=== PATIENT | female | born 1940 | race Caucasian/White ===

== ENCOUNTER 2023-04-18 12:18 | Inpatient (IN) | payer MEDICARE, OTHER, SELFPAY ==
[2023-04-18] VITALS (23 sets, daily range): BP systolic 88–145; BP diastolic 62–102; BMI 23.9; BMI 23.0
--- NOTE | 2023-04-18 09:38 | ED.GENMED ---
History of Present Illness
<Lester Carpenter PA-C - Last Filed: 04/18/23 15:26>
General
Chief Complaint: Breathing Problem
Time Seen by Provider: 04/18/23 09:09
Travel History
Have you had any contact with someone who has COVID-19?: No
Do you have any symptoms of coronavirus? Fever > 100 degrees, chills, cough, shortness of breath, sore throat, loss of taste or smell, muscle aches, or headache?: Yes
Symptoms:: cough, sob
History of Present Illness
History of Present Illness:
83-year-old female with history of multiple myeloma currently in remission, paroxysmal atrial fibrillation presents to the emergency department for evaluation of orthopnea and dyspnea on exertion ongoing for the past 5 to 6 days. Has been sleeping
essentially upright due to symptoms. Denies any associated fever, chills, sweats, chest pain, nausea, or vomiting. No recent URI symptoms. She notes that she is compliant with her Eliquis however has been cutting the pills in half thus taking 2.5
mg twice daily, it is not clear whether this was recommended by her professor of social work or whether the patient did this of her own volition. Additionally her family notes that she was previously prescribed amiodarone but she has not taken this in quite
some time, also unclear whether this was advised by her professor of social work or not.
Past History
<Lester Carpenter PA-C - Last Filed: 04/18/23 15:26>
Past History
ED Past Medical History: Arrthythmia
ED Past Surgical History: Orthopedic
Social History
Tobacco: Non-smoker
Alcohol: None
Drug: None
Personal: Other (With her sister)
Living: with family
Review of Systems
<Lester Carpenter PA-C - Last Filed: 04/18/23 15:26>
Review of Systems
Allergies reviewed?: Yes
All Other Systems: ROS reviewed and negative except as documented in HPI and ROS
Phy Exam
<Lester Carpenter PA-C - Last Filed: 04/18/23 15:26>
Physical Exam
Physical Exam:
GEN: Well appearing, NAD, WDWN
HEENT: Oral mucosa moist, no scleral icterus
Cardiac: Profoundly tachycardic
Lung: No respiratory distress, no tachypnea, lungs clear to auscultation bilaterally, no conversational dyspnea
MSK: No gross deformity or injuries, no peripheral edema
Skin: Good color, no pallor or jaundice, no rashes
Neuro: AO x3, moves all extremities freely
Psych: Calm, cooperative
Scores
<Lester Carpenter PA-C - Last Filed: 04/18/23 15:26>
Heart Failure Risk
Heart Failure Risk Score: Not Applicable
Course
<Lester Carpenter PA-C - Last Filed: 04/18/23 15:26>
Orders/Labs/Results
Orders:
Orders
04/18/23 09:27
Electrocardiogram (*1) Urgent
Reason for Study: Other
Other Reason for Exam: Respiratory Distress
Cardiac Monitoring- Treatment ONCE
EKG- Treatment ONCE
IV Insert/Care/Rem.- Treatment PRN
O2 Therapy [RESP] Urgent
Titrate/Wean O2 to maintain O2 sat greater than (%): 93
Special Instructions: TO MAINTAIN CONTINUOUS O2 SATS >/= 93%
Pulse Ox/cont/shift [RESP] Urgent
Quantity: 1
Special Instructions: continuous pulse ox
04/18/23 09:29
Complete Blood Count/With Diff Urgent
Comprehensive Metabolic Panel Urgent
NT-proBNP Urgent
PTT Urgent
Prothrombin Time Urgent
TSH Reflex To Free T4 Urgent
Comment: ADD ON
Troponin I Urgent
04/18/23 09:33
Diltiazem HCl [Cardizem] 10 mg IV NOW STA
04/18/23 09:45
Diltiazem 125 mg/125 ml Nss [Cardizem] 125 mg in 125 ml IV PER PROTOCOL
Initial dose in mg/hr, then titrate:: 5
Titrate to keep:: Heart rate 80-100 bpm
Titrate by mg/hr:: 5 mg/hr
Frequency of titrations (minutes):: 15
Maximum dose in mg/hr:: 15
04/18/23 Lunch
Regular
At Your Request: Full Participation
04/18/23 10:11
CR Chest Portable - 1 View Urgent
Comment:
Reason For Exam: SOB
Reason Study Needs to be Portable: Other
04/18/23 10:40
Add On- LAB Routine
Tests Added?: TSH reflex to T4
04/18/23 10:45
Admit/Transfer Patient As Directed
Co-Sign Provider:
Level of Care: Inpatient admission
Assign to:: IVU
Physician / Group: short/hospitalist
Diagnosis: afib rvr
Reason for Hospitalization: afib rvr
Expected length of stay greater than two midnights?: Yes
ELOS- Estimated Length of Stay in days: 4
I certify the patient meets the requirements for IP care: Yes
04/18/23 10:46
Code Status As Directed
Resuscitation Status: Full Code
04/18/23 10:49
CARDIOLOGY CONSULT Routine
Consulting Provider: Justino Kc
Was physician already notified: Yes
04/18/23 11:01
Troponin I Q6H
04/18/23 11:38
Furosemide [Lasix] 20 mg IV NOW STA
04/18/23 13:25
Acetaminophen [Tylenol] 650 mg PO Q6HPRN PRN
Diltiazem 125 mg/125 ml Nss [Cardizem] 125 mg in 125 ml IV PER PROTOCOL
Initial dose in mg/hr, then titrate:: 5
Titrate to keep:: Heart rate 80-100 bpm
Titrate by mg/hr:: 5 mg/hr
Frequency of titrations (minutes):: 15
Maximum dose in mg/hr:: 15
04/18/23 13:25
Activity As Directed
Activity Level: Out of Bed-Early Mobility
Pneumatic Compression Sleeves As Directed
Type: Knee high
Vital Signs As Directed
Frequency: Per unit guidelines
DX Deep Vein Thrombosis Video Routine
04/18/23 17:00
Troponin I Q6H
04/18/23 20:00
Acyclovir [Zovirax] 400 mg PO BID
Apixaban [Eliquis] 5 mg PO BID
04/18/23 22:00
Montelukast Sodium [Singulair] 10 mg PO HS
04/18/23 23:00
Troponin I Q6H
04/19/23 06:00
Basic Metabolic Panel IN AM
Complete Blood Count/With Diff IN AM
04/19/23 08:00
Pantoprazole [Protonix] 40 mg PO DAILY
04/20/23 06:00
Basic Metabolic Panel IN AM
Complete Blood Count/With Diff IN AM
04/20/23 08:00
Dexamethasone [Decadron] 20 mg PO MO
Abnormal Lab Results
04/18/23
09:29
RBC 4.19 L 10^6/uL
(4.20-5.40)
Absolute Neuts (auto) 6.6 H 10^3/uL
(1.4-6.5)
Absolute Monos (auto) 0.7 H 10^3/uL
(0.1-0.6)
Lymphocytes % 15.5 L %
(20.5-51.1)
PT 20.1 H Sec
(11.4-14.6)
APTT 35.1 H Sec
(23.4-35.0)
Sodium 133 L mmol/L
(135-145)
Carbon Dioxide 21 L mmol/L
(22-30)
BUN 21 H mg/dl
(7-17)
Creatinine 1.3 H mg/dL
(0.6-1.0)
Glucose 109 H mg/dl
(70-99)
ALT 36 H U/L
(0-35)
Total Protein 6.1 L g/dl
(6.3-8.2)
04/18/23 09:29
04/18/23 09:29
Vital Signs
Initial and Last Documented VS:
Initial Vital Signs
Temp Pulse Resp BP Pulse Ox
97.6 F 91 18 117/76 98
04/18/23 09:01 04/18/23 09:01 04/18/23 09:01 04/18/23 09:01 04/18/23 09:01
Last Documented Vital Signs
Temp Pulse Resp BP Pulse Ox
97.9 F 138 16 145/95 92
04/18/23 13:29 04/18/23 13:30 04/18/23 13:29 04/18/23 13:28 04/18/23 13:29
Geethalt;Ej Lima DO - Last Filed: 04/18/23 10:17>
Orders/Labs/Results
Orders:
Orders
04/18/23 09:27
Electrocardiogram (*1) Urgent
Reason for Study: Other
Other Reason for Exam: Respiratory Distress
Cardiac Monitoring- Treatment ONCE
EKG- Treatment ONCE
IV Insert/Care/Rem.- Treatment PRN
O2 Therapy [RESP] Urgent
Titrate/Wean O2 to maintain O2 sat greater than (%): 93
Special Instructions: TO MAINTAIN CONTINUOUS O2 SATS >/= 93%
Pulse Ox/cont/shift [RESP] Urgent
Quantity: 1
Special Instructions: continuous pulse ox
04/18/23 09:29
Complete Blood Count/With Diff Urgent
Comprehensive Metabolic Panel Urgent
NT-proBNP Urgent
PTT Urgent
Prothrombin Time Urgent
TSH Reflex To Free T4 Urgent
Comment: ADD ON
Troponin I Urgent
04/18/23 09:33
Diltiazem HCl [Cardizem] 10 mg IV NOW STA
04/18/23 09:45
Diltiazem 125 mg/125 ml Nss [Cardizem] 125 mg in 125 ml IV PER PROTOCOL
Initial dose in mg/hr, then titrate:: 5
Titrate to keep:: Heart rate 80-100 bpm
Titrate by mg/hr:: 5 mg/hr
Frequency of titrations (minutes):: 15
Maximum dose in mg/hr:: 15
04/18/23 Lunch
Regular
At Your Request: Full Participation
04/18/23 10:11
CR Chest Portable - 1 View Urgent
Comment:
Reason For Exam: SOB
Reason Study Needs to be Portable: Other
04/18/23 10:40
Add On- LAB Routine
Tests Added?: TSH reflex to T4
04/18/23 10:45
Admit/Transfer Patient As Directed
Co-Sign Provider:
Level of Care: Inpatient admission
Assign to:: IVU
Physician / Group: short/hospitalist
Diagnosis: afib rvr
Reason for Hospitalization: afib rvr
Expected length of stay greater than two midnights?: Yes
ELOS- Estimated Length of Stay in days: 4
I certify the patient meets the requirements for IP care: Yes
04/18/23 10:46
Code Status As Directed
Resuscitation Status: Full Code
04/18/23 10:49
CARDIOLOGY CONSULT Routine
Consulting Provider: Justino Kc
Was physician already notified: Yes
04/18/23 11:01
Troponin I Q6H
04/18/23 11:38
Furosemide [Lasix] 20 mg IV NOW STA
04/18/23 13:25
Acetaminophen [Tylenol] 650 mg PO Q6HPRN PRN
Diltiazem 125 mg/125 ml Nss [Cardizem] 125 mg in 125 ml IV PER PROTOCOL
Initial dose in mg/hr, then titrate:: 5
Titrate to keep:: Heart rate 80-100 bpm
Titrate by mg/hr:: 5 mg/hr
Frequency of titrations (minutes):: 15
Maximum dose in mg/hr:: 15
04/18/23 13:25
Activity As Directed
Activity Level: Out of Bed-Early Mobility
Pneumatic Compression Sleeves As Directed
Type: Knee high
Vital Signs As Directed
Frequency: Per unit guidelines
DX Deep Vein Thrombosis Video Routine
04/18/23 17:00
Troponin I Q6H
04/18/23 20:00
Acyclovir [Zovirax] 400 mg PO BID
Apixaban [Eliquis] 5 mg PO BID
04/18/23 22:00
Montelukast Sodium [Singulair] 10 mg PO HS
04/18/23 23:00
Troponin I Q6H
04/19/23 06:00
Basic Metabolic Panel IN AM
Complete Blood Count/With Diff IN AM
04/19/23 08:00
Pantoprazole [Protonix] 40 mg PO DAILY
04/20/23 06:00
Basic Metabolic Panel IN AM
Complete Blood Count/With Diff IN AM
04/20/23 08:00
Dexamethasone [Decadron] 20 mg PO MO
Abnormal Lab Results
04/18/23
09:29
RBC 4.19 L 10^6/uL
(4.20-5.40)
Absolute Neuts (auto) 6.6 H 10^3/uL
(1.4-6.5)
Absolute Monos (auto) 0.7 H 10^3/uL
(0.1-0.6)
Lymphocytes % 15.5 L %
(20.5-51.1)
PT 20.1 H Sec
(11.4-14.6)
APTT 35.1 H Sec
(23.4-35.0)
Sodium 133 L mmol/L
(135-145)
Carbon Dioxide 21 L mmol/L
(22-30)
BUN 21 H mg/dl
(7-17)
Creatinine 1.3 H mg/dL
(0.6-1.0)
Glucose 109 H mg/dl
(70-99)
ALT 36 H U/L
(0-35)
Total Protein 6.1 L g/dl
(6.3-8.2)
04/18/23 09:29
04/18/23 09:29
Vital Signs
Initial and Last Documented VS:
Initial Vital Signs
Temp Pulse Resp BP Pulse Ox
97.6 F 91 18 117/76 98
04/18/23 09:01 04/18/23 09:01 04/18/23 09:01 04/18/23 09:01 04/18/23 09:01
Last Documented Vital Signs
Temp Pulse Resp BP Pulse Ox
97.9 F 138 16 145/95 92
04/18/23 13:29 04/18/23 13:30 04/18/23 13:29 04/18/23 13:28 04/18/23 13:29
<Lester Carpenter PA-C - Last Filed: 04/18/23 15:26>
MDM/Problems Addressed
MDM/Problems Addressed:
83-year-old female presents with shortness of breath for the past several days. She is afebrile and overall well-appearing. She is noted to be in a rapid atrial fibrillation. She is generally been poorly compliant with her professor of social work
recommendations, self discontinued amiodarone at some point over the past few years and is taking half dose Eliquis despite being recommended to take full dose Eliquis. She started on a diltiazem drip for heart rate control, she is not a suitable
ED cardioversion candidate due to lack of appropriate anticoagulation. Will be admitted to the hospitalist service for further management and potential KATHIE guided cardioversion if deemed necessary by inpatient cardiology service. Did not start
heparin in the emergency department as she did take her Eliquis today.
<Lester Carpenter PA-C - Last Filed: 04/18/23 15:26>
Comment
Comment:
EKG independently interpreted by me shows a rapid atrial fibrillation at a rate of [address] depression suspicious for rate dependent ischemia
*Critical Care Note
Total Time (30-74mins, 75-104mins- exclusive of procedures): 30 minutes
comment:
Critical care time: 30 minutes
Critical care time was exclusive of: Separately billable procedures, treating other patients, and teaching time
Critical care was necessary to treat or prevent imminent or life-threatening deterioration of the following conditions: Rapid A-fib
Critical care time spent personally by me on the following activities:
[x] Review of old charts
[x] Obtaining history from patient or surrogate
[x] Ordering and review of the laboratory studies
[x] Ordering and review of radiographic studies
[x] Ordering and performing treatments and interventions
[x] Patient patient's response to treatment
[x] Development of treatment plan with patient or surrogate
<Lester Carpenter PA-C - Last Filed: 04/18/23 15:26>
Update Note
Update Note:
Discussed case with cardiology Dr. Rey Enma, he reviewed last office notes from September 2020, at that time patient was recommended to be on amiodarone and 5 mg Eliquis, no evidence that she was advised to take lower dose Eliquis or discontinue
amiodarone by cardiology
ED Attending Note
<Lester Carpenter PA-C - Last Filed: 04/18/23 15:26>
-
Portions of this chart may have been created with voice recognition software.� Occasional wrong word or��sound alike� substitutions may have occurred due to the inherent limitations of voice recognition software.
<Ej Lima DO - Last Filed: 04/18/23 10:17>
ED Attending Note
Patient seen and examined by attending physician: Yes
I performed the substantive portion of visit, reviewed & personally made and approve the management plan that is documented in note by myself or WALTER.: Yes
ED Attending Note:
Seen with PA examined independently agree with assessment and plan PAF looks to be in A-fib possibly heart failure does not appear to been compliant with her meds as prescribed plan to be rate control admission
Discharge Plan
Departure
Patient Disposition: Admit
Date of Disposition: 04/18/23
Time of Disposition: 10:14
Admit to: IMU
Presentation/result/management discussed w/ accepting MD/DO: Hospitalist
Discharge Problem:
Atrial fibrillation with RVR
Interventions
Interventions:
*Risk Screen - Suicide Last Done: 04/18/23 13:35
*General Assessment Last Done: 04/18/23 09:01
*Neglect/Abuse Screening Last Done: 04/18/23 09:01
ED- Fall Risk Assessment Last Done: 04/18/23 10:05
*ED COVID-19 Vaccine History Last Done: 04/18/23 13:35
*Nursing Disposition Last Done: 04/18/23 13:34
ED- Cardiac Assessment Last Done: 04/18/23 10:05
ED- Pulmonary Assessment Last Done: 04/18/23 10:05
Discharge Date and Time
Discharge Date/Time: 04/18/23 13:35
[2023-04-18 09:40] LABS: % Basophils 0.3 % (0-2); % Eosinophils 0.6 % (0-6); % Immature Granulocytes 0.3 % (0-0.5); % Lymphocytes 15.5 % (20.5-51.1); % Monocytes 8.1 % (1.7-9.3); % Neutrophils 75.2 % (42.2-75.2); Absolute Eosinophils 0.1 10^3/uL (0-0.7); Absolute Lymphocytes 1.4 10^3/uL (1.2-3.4); Absolute Monocytes 0.7 10^3/uL (0.1-0.6); Absolute Neutrophils 6.6 10^3/uL (1.4-6.5); Hematocrit 37.4 % (37.0-47.0); Hemoglobin 12.7 g/dL (12.0-16.0); Mean Corpuscular Hgb 30.3 pg (27.0-31.0); Mean Corpuscular Volume 89.3 fL (81.0-99.0); Mean Platelet Volume 9.9 fL (7.4-10.4); Nucleated Red Blood Cells % 0 %; Platelet Count 375 10^3/uL (130-400); Red Blood Cell Count 4.19 10^6/uL (4.20-5.40); Red Cell Dist. Width 13.9 % (11.5-14.5); White Blood Cell Count 8.7 10^3/uL (4.8-10.8)
[2023-04-18] MEDS: CARDIZEM 10 MG IV (09:43)
[2023-04-18] MEDS: CARDIZEM 125 IV ×2 (09:44→19:11)
[2023-04-18 09:45] LABS: INR 1.73; PT 20.1 Sec (11.4-14.6)
[2023-04-18 09:46] LABS: APTT 35.1 Sec (23.4-35.0)
[2023-04-18 09:51] LABS: ALT (SGPT) 36 U/L (0-35); AST (SGOT) 26 U/L (14-36); Alkaline Phosphatase 73 U/L (38-126); Blood Urea Nitrogen 21 mg/dl (7-17); Carbon Dioxide 21 mmol/L (22-30); Chloride 103 mmol/L (98-107); Estimated Creatinine Clearance 26 ml/min; Glucose 109 mg/dl (70-99); Sodium 133 mmol/L (135-145); Total Protein 6.1 g/dl (6.3-8.2)
[2023-04-18 10:03] LABS: NT-proBNP 12800 pg/ml; Troponin I 0.016 ng/ml
--- NOTE | 2023-04-18 10:33 | CON.CAR ---
Addendum entered and electronically signed by Justino Kc MD 04/18/23 11:58:
Patient seen and examined in collaboration with WASTE REDUCTION COORDINATOR; agree with below.
-83-year-old female with known paroxysmal atrial fibrillation and multiple myeloma (in remission) admitted with A-fib with RVR; patient has been noncompliant with Cardiology follow-up over the past 2-1/2 years and stopped amiodarone of her own
accord and began cutting her Eliquis 5 mg tablets in half and has been taking 2.5 mg twice daily of her own accord.
-The importance of Cardiology follow-up and medication compliance was emphasized with the patient at bedside; her son and sister were also present in the ER.
-The patient has been started on Cardizem drip; continue.
-The patient should be on Eliquis 5 mg twice daily.
-KATHIE/cardioversion will be arranged for Thursday; NPO after midnight Thursday night.
-manager monitoring.
Original Note:
Consultation
Consultation Request
Date/Time Consultation Requested: 04/18/23 09:50
Date/Time Consultation Performed: 04/18/23 10:30
Requesting Provider: EDWIGE Carpenter
Performing Provider: LATRICIA Haque for Dr. Kc
Reason for Consultation: Atrial fibrillation with rapid ventricular response
Medical History
-
Chief Complaint: Shortness of breath
History of Present Illness:
Patient is an 83-year-old female (known to Dr. Virk, her primary cellophaner), with paroxysmal atrial fibrillation, RBBB, multiple myeloma, and osteoporosis who presented to the emergency department with a chief complaint of shortness of breath.
Her shortness of breath started 5 days prior to arrival. She was found to be in atrial fibrillation with rapid response. She self discontinued her amiodarone. She had been cutting her apixaban in half because she thought it may be causing her
lightheadedness. She was unaware that she was not decreasing her stroke risk by cutting her medication in half. Her shortness of breath is most pronounced when she is lying flat. She has to sleep in a chair last night because she was unable to
fall asleep sitting propped up in her bed. She endorses PND. She denies weight gain and she does not have lower extremity edema. Her proBNP is nearly 13,000.
She was last seen in the outpatient setting in September,.
Past Medical History
Past Medical History: Arrhythmias (Paroxysmal atrial fibrillation) and Cancer (Multiple myeloma)
Past Surgical History: Orthopedic
Social History
Tobacco: Non-Smoker
Alcohol: None
Drug: None
Employment: Retired
Family History
Family History: Reviewed & Not Pertinent
Allergies / Home Medications
Allergy/AdvReac Type Severity Reaction Status Date / Time
No Known Allergies Allergy Verified 04/18/23 09:01
Medication Instructions Recorded Confirmed Type
acetaminophen 325 mg tablet 650 mg PO Q6HPRN PRN mild pain/ 05/03/20 04/18/23 Rx
fever>100.5F
acyclovir 400 mg tablet (Zovirax) 400 mg PO BID Infection 08/01/20 04/18/23 History
bortezomib 3.5 mg injection powder 3.5 mg SC MO Cancer 08/01/20 04/18/23 History
for solution (Velcade)
dexamethasone 4 mg tablet 20 mg PO MO Cancer 08/01/20 04/18/23 History
omeprazole 20 mg capsule,delayed 20 mg PO DAILY Gastrointestinal 08/01/20 04/18/23 History
release issue
ondansetron 8 mg disintegrating 8 mg PO Q8HPRN PRN nausea 08/01/20 04/18/23 History
tablet (Zofran ODT)
apixaban 5 mg tablet (Eliquis) 2.5 mg PO BID 04/18/23 04/18/23 History
montelukast 10 mg tablet 10 mg PO HS 04/18/23 04/18/23 History
(Singulair)
Review of Systems
-
History Source: Patient
All other systems: Negative unless noted
Respiratory: Trouble Breathing
Cardiac: No Symptoms
Abdomen/GI: No Symptoms
Physical Exam
Vital Signs
Temp Pulse Resp BP Pulse Ox
97.6 F 145 19 96/68 95
04/18/23 09:01 04/18/23 10:00 04/18/23 10:00 04/18/23 10:00 04/18/23 10:00
Lab Results
04/18/23 09:29
04/18/23 09:29
Troponin I 0.016 ng/ml 04/18/23 09:29
Wni-W-Zsyjjmzcmwo Pept 53105 pg/ml 04/18/23 09:29
Physical Exam
General: Well Developed
HEENT: Normocephalic, Anicteric and Moist Mucous Membranes
Respiratory: Clear and Non Labored Respirations
Cardiac: S1/S2 and Irregular Rhythm
Breast: Deferred by me
GI: Soft, Non Tender, Non Distended and Normal Bowel Sounds
Rectal: Deferred by Provider
Genito-urinary: No Costovertebral Tender
Musculoskeletal: No Clubbing, No Cyanosis and No Edema
Skin: Warm and Dry
Neuro: AO x 3
Hematologic/Lymphatic: No Lymphadenopathy
Psych: Calm
Impression / Plan
-
Atrial fibrillation with rapid ventricular response
-Rates elevated, she self discontinued her amiodarone in the outpatient setting
-Oral Anticoagulation: She had been cutting her apixaban in half, start apixaban 5 mg twice daily (unless weight becomes < 60 kg or creatinine of 1.5)
-[id number]: Score 4 (Heart failure, age 75 or more, female gender)
-Consider KATHIE/DCCV this hospitalization
Acute HFpEF (LVEF 55-60%, 2020)
-Reports of PND and orthopnea, CXR pending
-Diuresis with furosemide 20mg IV now
-Update echocardiogram
-Heart failure education during this hospitalization
Multiple myeloma, managed by oncology in the outpatient setting
Data Reviewed
-
EKG: Report Reviewed by me (Atrial fibrillation with rapid ventricular response, LAFB, rate 171)
Radiology: Report Reviewed by me (CXR: Mild cardiomegaly. No acute pulmonary process.)
Medical Tests (Nuc Med, Echo etc): Report Reviewed by me (Prior echocardiogram as above)
Labs: Labs Reviewed by me
Old Records: Reviewed (Prior outpatient cardiology note)
--- NOTE | 2023-04-18 10:51 | HPS.HSE ---
Family Physician
-
Family Physician: Girish Merrill
Chief Complaint
-
Shortness of breath
History of Present Illness
83-year-old female past medical history of multiple myeloma who is presenting from home with dyspnea on exertion which has been ongoing since Thursday. Patient stated at home she has been sitting upright. Denies any chest pain. States for the past
4 to 5 days she has taken full dose of Eliquis however she took 2.5 mg of Eliquis for 4 to 5 weeks as she thought dizziness was associated with Eliquis side effect. Patient stated she is not taking amiodarone at home. Denies any productive cough
or fevers or chills. Denies any palpitations. Denies any nausea vomiting or diarrhea. States of orthopnea and PND. States of lower extremity edema.
Medical History
Past Medical History
Past Medical History: Reports Other
Additional Past Medical History:
Paroxysmal atrial fibrillation
Multiple myeloma
Chronic immunosuppressant state
Chronic coagulopathy with Eliquis
Past Surgical History: Reports Other
Additional Past Surgical History:
History of prophylactic cephalomedullary nail fixation of a pathologic fracture of the right femur in May 2020.
Social History
Tobacco: Non-smoker
Living: With Family
Family History
Family History: Not pertinent
Allergies / Home Medications
Allergies reflects when Allergies were last updated in [email or web address].
Home Medications with original date entered in [email or web address]
Allergy/Medication List:
Allergies
Allergy/AdvReac Type Severity Reaction Status Date / Time
No Known Allergies Allergy Verified 04/18/23 09:01
Home Medications
acetaminophen 325 mg tablet 650 mg PO Q6HPRN PRN mild pain/ fever>100.5F 05/03/20
dexamethasone 4 mg tablet 4 mg PO DIRECTED Cancer 08/01/20
omeprazole 20 mg capsule,delayed release 20 mg PO DAILY PRN Gastrointestinal issue 05/19/21
Darzalex 1 dose SC MONTHLY 04/18/23
Xgeva 1 dose SC [id number] 04/18/23
acyclovir 400 mg tablet 400 mg PO BID 04/18/23
apixaban 5 mg tablet (Eliquis) 2.5 mg PO BID 04/18/23
montelukast 10 mg tablet (Singulair) 10 mg PO DIRECTED 04/18/23
Review of Systems
-
History Source: Patient
Constitutional: Reports No Symptoms
EENT: Reports No Symptoms
Respiratory: Reports Trouble Breathing
Cardiac: Reports See HPI
Abdomen/GI: Reports No Symptoms
: Reports No Symptoms
Musculoskeletal: Reports Edema
Skin: Reports No Symptoms
Neurological: Reports No Symptoms
Endocrine: Reports No Symptoms
Hematologic/Lymphatic: Reports No Symptoms
Physical Exam
Vital Signs
Vital Signs
Temp Pulse Resp BP Pulse Ox
97.6 F 145 19 96/68 95
04/18/23 09:01 04/18/23 10:00 04/18/23 10:00 04/18/23 10:00 04/18/23 10:00
Physical Exam
General: Well Developed, Well Nourished and No Apparent Distress
HEENT: NormoCephalic, Moist mucous membranes and Atraumatic
Respiratory: Clear
Cardiac: S1/S2 and Irregular Rhythm; No Murmur or Rub
GI: Soft, Non Tender, Non Distended and Normal Bowel Sounds; No Organomegaly
Rectal: Deferred by Provider
Musculoskeletal: No Clubbing, No Cyanosis and No Edema
Skin: No Rash
Neuro: Awake, Alert, Oriented, AO x 3, No Motor Deficits and Nonfocal/grossly intact
Psych: Calm
Laboratory Results
-
04/18/23 09:29
04/18/23 09:29
Laboratory Results
PT 20.1 Sec (11.4-14.6) H 04/18/23:
INR 1.73 04/18/23:
APTT 35.1 Sec (23.4-35.0) H 04/18/23:
Total Bilirubin 1.0 mg/dl (0.2-1.3) 04/18/23:
AST 26 U/L (14-36) 04/18/23:
ALT 36 U/L (0-35) H 04/18/23:
Alkaline Phosphatase 73 U/L (38-126) 04/18/23:
Troponin I 0.016 ng/ml 04/18/23:
Impression/Plan
-
#Dyspnea on exertion likely secondary to atrial fibrillation rapid ventricular response and acute HFpEF
#Paroxysmal atrial fibrillation with rapid ventricular response
Start patient on Cardizem drip
Start patient on full dose Eliquis 5 mg twice daily
Chest x-ray was noted
Plan for possible KATHIE/DCCV this hospitalization
#Acute HFpEF
Echocardiogram on Thursday
Lasix per cardiology
I's and O's
Daily weights
proBNP of 12,000
Check troponin
Monitor creatinine closely
Multiple myeloma
On high-dose steroids
Continue acyclovir
Follows with [facility] Dr. Navarro
GERD
Continue PPI as needed
Full code
DVT prophylaxis Eliquis
Discussed with patient's son and sister at bedside in detail
I spent a total of 78 minutes with the patient or on the floor. More than 50% of this time involved counseling and coordination of care.
[2023-04-18] MEDS: LASIX 20 MG IV (12:14)
--- NOTE | 2023-04-18 14:09 | PTCARENOTE ---
04/18/23 1400 Received patient from ER via stretcher. Pt assisted to bed x 1 assist. Pt placed on pvc monitor in Uncontrolled A fib 120-140's. BP stable, afebrile. Pulse ox 93% on room air. Cardizem drip infusing at 15 mg/hr. Pt oriented to room
and surroundings. Reviewed plan of care with patient and family. Support given, questions were answered. Will monitor patient throughout shift.
[2023-04-18 14:22] LABS: TSH Reflex To Free T4 2.77 uIU/ml (0.47-4.68)
[2023-04-18 15:08] LABS: Troponin I 0.015 ng/ml
--- NOTE | 2023-04-18 17:55 | PTCARENOTE ---
04/18/23 1530 Noticed on electronic device monitor patient was in a normal rhythm. EKG obtained- NSR noted. HR 69, BP 114/62. Cardizem drip decreased to 10mg/hr. Newspaper Managing Editor made aware. No further orders at this time. Will continue to monitor.
[2023-04-18 18:15] LABS: Troponin I 0.014 ng/ml
[2023-04-18] MEDS: ELIQUIS 5 MG PO (20:40)
[2023-04-18] MEDS: ZOVIRAX 400 MG PO (20:40)
[2023-04-18 21:55] LABS: Glucose - Point of Care 103 mg/dl (70-99)
[2023-04-18] MEDS: SINGULAIR PO (22:30)
[2023-04-19] VITALS (12 sets, daily range): BP systolic 105–137; BP diastolic 41–98; PULSE 72–74; O2SAT 97
[2023-04-19 03:16] LABS: % Basophils 0.7 % (0-2); % Immature Granulocytes 0.5 % (0-0.5); % Lymphocytes 20.4 % (20.5-51.1); % Monocytes 10.6 % (1.7-9.3); % Neutrophils 65.8 % (42.2-75.2); Absolute Eosinophils 0.1 10^3/uL (0-0.7); Absolute Lymphocytes 1.2 10^3/uL (1.2-3.4); Absolute Monocytes 0.6 10^3/uL (0.1-0.6); Absolute Neutrophils 3.9 10^3/uL (1.4-6.5); Hematocrit 34.1 % (37.0-47.0); Hemoglobin 11.9 g/dL (12.0-16.0); Mean Corp Hgb Conc. 34.9 g/dL (33.0-37.0); Mean Corpuscular Hgb 30.6 pg (27.0-31.0); Mean Corpuscular Volume 87.7 fL (81.0-99.0); Mean Platelet Volume 9.6 fL (7.4-10.4); Nucleated Red Blood Cells % 0 %; Platelet Count 304 10^3/uL (130-400); Red Blood Cell Count 3.89 10^6/uL (4.20-5.40)
[2023-04-19 03:31] LABS: Blood Urea Nitrogen 25 mg/dl (7-17); Calcium 8.7 mg/dl (8.4-10.2); Carbon Dioxide 23 mmol/L (22-30); Chloride 108 mmol/L (98-107); Estimated Creatinine Clearance 27 ml/min; Glucose 105 mg/dl (70-99); Potassium 3.9 mmol/L (3.5-5.1); Sodium 137 mmol/L (135-145)
[2023-04-19] MEDS: CARDIZEM 125 IV (05:13)
--- NOTE | 2023-04-19 05:56 | PTCARENOTE ---
pt pleasant and cooperative. states she slept well. denies pain or discomfort.pt remains nsr on monitor.
--- NOTE | 2023-04-19 08:00 | PTCARENOTE ---
pt received from previous RN, oriented, in bed. SR w/ BBB on the monitor, HR 60-70s. SBP 110s. palpable pulses, no edema. pt on RA, 95% POX. lungs clear. JORDAN. pt abdomen s/n, denies n/v. diet tolerated well. PIV. Cardizem gtt running as ordered. see
worklist for VS, I&O, and assessment.
[2023-04-19] MEDS: ELIQUIS 5 MG PO ×2 (08:31→19:38)
[2023-04-19] MEDS: ZOVIRAX 400 MG PO ×2 (08:31→19:39)
[2023-04-19] MEDS: PROTONIX 40 MG PO (08:31)
--- NOTE | 2023-04-19 10:14 | W.PN.HOSP.TC ---
Today's Communication/Plan
-
Cards recs
switch to po AV chase breanne
cont eliquis
PT/OT
Assessment / Plan
Assessment / Plan
#Dyspnea on exertion likely secondary to atrial fibrillation rapid ventricular response and acute HFpEF likely 2/2 non compliance
#Paroxysmal atrial fibrillation with rapid ventricular response
Start patient on Cardizem drip-currently on 10mg/HR.
now in NSR.
Consider stopping gtt and switch to po BB
Start patient on full dose Eliquis 5 mg twice daily
Chest x-ray was noted
#Acute HFpEF
Echocardiogram on Thursday
repeat dose of lasix
ECHO in am
I's and O's
Daily weights
proBNP of 12,000
Monitor creatinine closely
CKD
Monitor Cr with diuresis
If Cr >1.5 eliquis dose need to be adjusted
Multiple myeloma
On high-dose steroids
Continue acyclovir
Follows with [facility] Dr. Navarro
GERD
Continue PPI as needed
Full code
DVT prophylaxis Eliquis
Anticipated Discharge: Within 24 hours
Subjective/Interval History
-
Date of Service: April 19, 2023
Converted to NSR
States feeling mild sob.
states her symptoms started after hearing about her son medical condition
Objective Data
-
Labs:
Laboratory Results
04/19/23
03:04
WBC 6.0
Hgb 11.9 L
Hct 34.1 L
Plt Count 304
Sodium 137
Potassium 3.9
Chloride 108 H
Carbon Dioxide 23
BUN 25 H
Creatinine 1.3 H
Glucose 105 H
Calcium 8.7
Vital Signs:
Vital Signs
Temp Pulse Resp BP Pulse Ox
97.8 F 76 20 117/68 95
04/19/23 06:53 04/19/23 09:30 04/19/23 06:53 04/19/23 06:57 04/19/23 09:28
I&O
04/18/23 04/19/23 04/20/23
06:59 06:59 06:59
Intake Total
Output Total 900 / 900
Balance -900 / -900
Physical Exam
-
General: Well Developed and No Apparent Distress
HEENT: Normocephalic, Atraumatic and Moist Mucous Membranes
Respiratory: Clear to Auscultation
Cardiac: Regular Rhythm and S1/S2; Negative Murmur, Rub or Gallop
GI: Soft, Nontender, Nondistended and Normal Bowel Sounds; Negative Organomegaly
Rectal: Deferred by Provider
Musculoskeletal: No Clubbing, No Cyanosis and No Edema
Skin: Negative Rash
Neuro: Awake, Alert, AO x 3, No Motor Deficits and Nonfocal/Grossly Intact
Psych: Calm
[2023-04-19] MEDS: LASIX 20 MG IV (12:42)
--- NOTE | 2023-04-19 14:55 | W.PN.CD ---
Today's Communication / Plan
-
-Patient is going in and out of atrial fibrillation; cardioversion scheduled for tomorrow will be canceled.
-Currently in sinus rhythm.
-Will change to PO Cardizem CD 120 mg daily; will discontinue Cardizem drip.
-Echocardiogram tomorrow.
-Continue Lasix 20 mg IV daily.
Impression / Plan
-
Paroxysmal atrial fibrillation with rapid ventricular response
-Patient is going in and out of atrial fibrillation; cardioversion will be canceled.
-Currently in sinus rhythm.
-Will change to PO Cardizem CD 120 mg daily; will discontinue Cardizem drip.
-Oral Anticoagulation: She had been cutting her apixaban in half, start apixaban 5 mg twice daily (unless weight becomes < 60 kg or creatinine of 1.5).
-[id number]: Score 4 (Heart failure, age 75 or more, female gender).
Acute HFpEF (LVEF 55-60%, 2020)
-Reports of PND and orthopnea.
-Echocardiogram tomorrow.
-Continue Lasix 20 mg IV daily.
-Heart failure education during this hospitalization
Multiple myeloma, managed by oncology in the outpatient setting.
-On steroids and acyclovir.
Physical Exam
Vital Signs/Labs
Vital Signs
Temp Pulse Resp BP Pulse Ox
98 F 74 20 136/71 94
04/19/23 11:23 04/19/23 13:00 04/19/23 11:23 04/19/23 12:42 04/19/23 11:23
04/18/23 04/19/23 04/20/23
06:59 06:59 06:59
Actual Weight 60.8 kg
04/19/23 03:04
04/19/23 03:04
PT 20.1 Sec (11.4-14.6) H 04/18/23 09:29
INR 1.73 04/18/23 09:
APTT 35.1 Sec (23.4-35.0) H 04/18/23 09:29
04/18/23
09:
Xpd-P-Jaosxxafbjv Pept [id number]
LAB Results
04/18/23 04/18/23 04/18/23
11:01 17:38
Troponin I 0.016 0.015 0.014
04/19/23
03:04
Troponin I 0.020
Physical Exam
Constitutional: No acute distress and Comfortable
EENT: Anicteric
Cardiovascular: Rhythm & rate is regular, Pedal edema is absent, Systolic murmur absent and S1S2 is normal
Respiratory: Respiratory effort normal and Lungs clear to auscul.
GI: Soft
Neuro/Psych: AO x 3
Other: Skin (Warm, dry, intact)
Data Reviewed
-
Date of Service: April 19, 2023
EKG: Tracing Personally Visualized and interpreted (Telemetry: Sinus rhythm, PAF)
Medical Tests (PFT, Pathology etc): Discussed with Nurse
Labs: Labs Reviewed by me
[2023-04-19] MEDS: CARDIZEM CD 120 MG PO (15:27)
[2023-04-19] MEDS: SINGULAIR 10 MG PO (22:26)
[2023-04-20] VITALS (10 sets, daily range): BP systolic 111–141; BP diastolic 58–94; PULSE 73; BMI 23.1
--- NOTE | 2023-04-20 00:46 | PTCARENOTE ---
Pt received start of shift, HR SR w/ BBB and prolonged QT 60s-70s. Pt resting in bed, expresses desire to finally find out what's behind her JORDAN. Educated pt on plan of care and further testing. Pt denies any SOB while resting (O2 94-96% RA), CP, or
any lightheadedness/dizziness at this time. Informed to notify RN if any changes, call durand within reach.
[2023-04-20 04:32] LABS: % Basophils 0.5 % (0-2); % Eosinophils 3.7 % (0-6); % Immature Granulocytes 0.3 % (0-0.5); % Lymphocytes 27.5 % (20.5-51.1); % Monocytes 10.8 % (1.7-9.3); % Neutrophils 57.2 % (42.2-75.2); Absolute Eosinophils 0.2 10^3/uL (0-0.7); Absolute Lymphocytes 1.6 10^3/uL (1.2-3.4); Absolute Monocytes 0.6 10^3/uL (0.1-0.6); Absolute Neutrophils 3.4 10^3/uL (1.4-6.5); Hematocrit 33.7 % (37.0-47.0); Hemoglobin 11.5 g/dL (12.0-16.0); Mean Corp Hgb Conc. 34.1 g/dL (33.0-37.0); Mean Corpuscular Hgb 30.7 pg (27.0-31.0); Mean Corpuscular Volume 89.9 fL (81.0-99.0); Mean Platelet Volume 9.9 fL (7.4-10.4); Nucleated Red Blood Cells % 0 %; Platelet Count 298 10^3/uL (130-400); Red Blood Cell Count 3.75 10^6/uL (4.20-5.40); Red Cell Dist. Width 13.8 % (11.5-14.5); White Blood Cell Count 5.9 10^3/uL (4.8-10.8)
[2023-04-20 05:06] LABS: Blood Urea Nitrogen 28 mg/dl (7-17); Calcium 8.8 mg/dl (8.4-10.2); Carbon Dioxide 25 mmol/L (22-30); Chloride 103 mmol/L (98-107); Estimated Creatinine Clearance 36 ml/min; Glucose 95 mg/dl (70-99); Potassium 4.2 mmol/L (3.5-5.1); Sodium 138 mmol/L (135-145); eGFR 55.21
--- NOTE | 2023-04-20 06:39 | W.PN.HOSP.TC ---
Today's Communication/Plan
-
.
Assessment / Plan
Assessment / Plan
Physical Exam
Constitutional: No acute distress and Comfortable
EENT: Anicteric
Cardiovascular: Rhythm & rate is regular, Pedal edema is absent, Systolic murmur absent and S1S2 is normal
Respiratory: limited, no wheezes
GI: Soft, non tender abdomen
Neuro/Psych: AO x 3, she followed commands
Skin :(Warm, dry, intact), no leg edema
Psych: calm
#Dyspnea on exertion likely secondary to atrial fibrillation rapid ventricular response and acute HFpEF likely 2/2 non compliance
#Paroxysmal atrial fibrillation with rapid ventricular response
Start patient on Cardizem drip-currently on 10mg/HR.
now in NSR.
Consider stopping gtt and switch to po BB
Start patient on full dose Eliquis 5 mg twice daily
Chest x-ray was noted
#Paroxysmal atrial fibrillation with rapid ventricular response
#Acute HFpEF
Still complains of sob upon lying flat
Echocardiogram on Thursday
c/w IV Lasix
ECHO today
I's and O's
Daily weights
proBNP of 12,000
Monitor creatinine closely
Appreciate cardiology help
# hyponatremia, mild
resolved
# Post nasal drip
will try anti-allergic medicine/ nasal spray
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
Monitor Cr with diuresis
Avoid nephrotoxic
��# IgG multiple myeloma
On high-dose steroids
Continue acyclovir
Follows with [facility] Dr. Navarro
GERD
Continue PPI as needed
Full code
DVT prophylaxis Eliquis
Total time spent to see the patient on the floor, examine the patient, review data and lab results, discuss treatment plan with patient, nursing staff around 55 minutes
Anticipated Discharge: 24 - 48 hours
Subjective/Interval History
-
Date of Service: April 20, 2023
Mild SOB and post nasal drip
No chest pain
No fevers
Objective Data
-
Labs:
Laboratory Results
04/20/23
04:01
WBC 5.9
Hgb 11.5 L
Hct 33.7 L
Plt Count 298
Sodium 138
Potassium 4.2
Chloride 103
Carbon Dioxide 25
BUN 28 H
Creatinine 1.0
Glucose 95
Calcium 8.8
Vital Signs:
Vital Signs
Temp Pulse Resp BP Pulse Ox
97.8 F 69 18 133/79 95
04/20/23 03:50 04/20/23 04:00 04/20/23 03:50 04/20/23 03:50 04/20/23 03:50
I&O
04/18/23 04/19/23 04/20/23
06:59 06:59 06:59
Intake Total 330 / 330
Output Total 900 / 900 1350 / 1350
Balance -900 / -900 -1020 / -1020
--- NOTE | 2023-04-20 07:39 | PTCARENOTE ---
Telemetry captured for previous shift via [employer].
[2023-04-20] MEDS: ELIQUIS 5 MG PO ×2 (07:53→21:01)
[2023-04-20] MEDS: ZOVIRAX 400 MG PO ×2 (07:53→21:01)
[2023-04-20] MEDS: PROTONIX 40 MG PO (07:53)
--- NOTE | 2023-04-20 07:56 | W.PN.CD ---
Today's Communication / Plan
-
- increase DiltCD to 240
Impression / Plan
-
Paroxysmal atrial fibrillation with rapid ventricular response
-Patient is going in and out of atrial fibrillation; cardioversion is canceled.
-Currently in sinus rhythm.
-Will increase PO Cardizem CD from 120 mg daily to 240;
-Oral Anticoagulation: She had been cutting her apixaban in half, start apixaban 5 mg twice daily (unless weight becomes < 60 kg or creatinine of 1.5).
-[id number]: Score 4 (Heart failure, age 75 or more, female gender).
Acute HFpEF (LVEF 55-60%, 2020)
-Reports of PND and orthopnea.
-Echocardiogram tomorrow.
-Continue Lasix 20 mg IV daily.
-Heart failure education during this hospitalization
Multiple myeloma, managed by oncology in the outpatient setting.
-On steroids and acyclovir.
Physical Exam
Vital Signs/Labs
Vital Signs
Temp Pulse Resp BP Pulse Ox
97.8 F 71 18 133/79 95
04/20/23 03:50 04/20/23 07:00 04/20/23 03:50 04/20/23 03:50 04/20/23 03:50
04/19/23 04/20/23 04/21/23
06:59 06:59 06:59
Actual Weight 134 lb 0.657 oz 134 lb 7.712 oz
04/20/23 04:01
04/20/23 04:01
PT 20.1 Sec (11.4-14.6) H 04/18/23 09:29
INR 1.73 04/18/23 09:29
APTT 35.1 Sec (23.4-35.0) H 04/18/23 09:29
04/18/23
09:29
Pwa-H-Oscopqmmqay Pept [id number]
LAB Results
04/18/23 04/18/23 04/18/23
09:29 11:01 17:38
Troponin I 0.016 0.015 0.014
04/19/23
03:04
Troponin I 0.020
Physical Exam
Constitutional: Comfortable
Cardiovascular: Rhythm & rate is regular and Pedal edema is absent
Respiratory: Respiratory effort normal and Crackles Present
Data Reviewed
-
Date of Service: April 20, 2023
EKG: Tracing Personally Visualized and interpreted
Labs: Labs Reviewed by me
[2023-04-20] MEDS: CARDIZEM CD 120 MG PO ×2 (07:57→09:29)
[2023-04-20] MEDS: LASIX 20 MG IV (07:57)
--- NOTE | 2023-04-20 08:16 | PTCARENOTE ---
Patient received from caustic cresylate shift superintendent resting comfortably in bed, AAO X 3, denies pain at this time. VSS - NSR via cm, SaO2 @ 94% on RA, states JORDAN. Dr. Virk to bedside for am rounds, updated to status. Patient updated to plan of care for the day, in
agreement. See work list for full assessment and interventions performed.
--- NOTE | 2023-04-20 08:45 | PTCARENOTE ---
Patient rhythm noted to be afib. VS obtained, stable. Patient denies any dizziness, palpitations, worsened SOB. Physician notified.
--- NOTE | 2023-04-20 12:31 | PTCARENOTE ---
VS obtained, stable. Patient resting comfortably between care.
--- NOTE | 2023-04-20 13:03 | CM ---
Chart reviewed. Patient is independent of ADLS, currently lives with her sister in a [address], ambulates outside the home with a rolling walker. PT/OT recommending HH. Patient is currently not interested. Plan is for the patient to return to her
sisters house. CM to follow
--- NOTE | 2023-04-20 20:00 | PTCARENOTE ---
assumed care of pt from previous RN. pt A&Ox4, resting in bed. pt independent to bedside commode. pt denies pain at this time. SR w/ RBBB. HR 60-70s on tele-monitor. POX 94% on RA. pt c/o JORDAN and orthopnea. pt positioned comfortably in bed w/
assistance of RN. PIV intact. see worklist for complete nursing assessment, interventions, VS, and I&Os.
[2023-04-20] MEDS: SINGULAIR 10 MG PO (21:01)
[2023-04-21 03:21] VITALS: BP 125/66
[2023-04-21 03:33] VITALS: BMI 23.1
--- NOTE | 2023-04-21 06:41 | W.PN.HOSP.TC ---
Today's Communication/Plan
-
dc
Assessment / Plan
Assessment / Plan
Physical Exam
Constitutional: No acute distress and Comfortable
EENT: Anicteric
Cardiovascular: Rhythm & rate is regular, Pedal edema is absent, Systolic murmur absent and S1S2 is normal
Respiratory: better air, no rales, no wheezes
GI: Soft, non tender abdomen
Neuro/Psych: AO x 3, she followed commands
Skin :(Warm, dry, intact), no leg edema
Psych: calm
#Dyspnea on exertion likely secondary to atrial fibrillation rapid ventricular response and acute HFpEF likely 2/2 non compliance
#Paroxysmal atrial fibrillation with rapid ventricular response
Started patient on Cardizem drip-currently on 10mg/HR. Off gtt, now on/off a fib
c/w oral Cardizem and full dose Eliquis 5 mg twice daily
Chest x-ray was noted
#Paroxysmal atrial fibrillation with rapid ventricular response
#Acute HFpEF
No sob
Echo Normal LVEF 55% with mild to mod MR
s/p IV Lasix
Appreciate cardiology help
# hyponatremia, mild
resolved
# Post nasal drip
not an issue today
c/w PRN anti-allergic medicine/ nasal spray
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
stable
��# IgG multiple myeloma
On high-dose steroids
Continue acyclovir
Follows with [facility] Dr. Navarro
GERD
Continue PPI as needed
Full code
DVT prophylaxis Eliquis
Total discharge time spent to see the patient on the floor, examine the patient, review data and lab results, discuss discharge plan with patient, nursing staff around 65 minutes
Anticipated Discharge: Today
Subjective/Interval History
-
Date of Service: April 21, 2023
Doing well
no tachycardia
no sob
Objective Data
-
Vital Signs:
Vital Signs
Temp Pulse Resp BP Pulse Ox
98 F 81 18 125/66 94
04/21/23 03:29 04/21/23 05:30 04/21/23 03:29 04/21/23 03:21 04/21/23 03:29
I&O
04/19/23 04/20/23 04/21/23
06:59 06:59 06:59
Intake Total 330 / 330 250 / 250
Output Total 900 / 900 1350 / 1350 1450 / 1450
Balance -900 / -900 -1020 / -1020 -1200 / -1200
[2023-04-21 06:49] VITALS: BP 115/68
--- NOTE | 2023-04-21 08:18 | W.PN.CD ---
Today's Communication / Plan
-
- switch to po lasix
ok for dc from Cardiol POV
Impression / Plan
-
Paroxysmal atrial fibrillation with rapid ventricular response
-Patient is going in and out of atrial fibrillation; initial plan for cardioversion was canceled
-Currently in sinus rhythm. Seems to be settled in SR on DiltCD 240
-Oral Anticoagulation: She had been cutting her apixaban in half, start apixaban 5 mg twice daily (unless weight becomes < 60 kg or creatinine of 1.5).
-[id number]: Score 4 (Heart failure, age 75 or more, female gender).
-I reviewed the importance of med compliance and she agrees (I think)
Acute HFpEF (LVEF 55-60%, 2020)
-Reports of PND and orthopnea.
-Echocardiogram 04/20: EF 55% with only mild valve changes
-switch to lasix 20/day
-Heart failure education during this hospitalization
Multiple myeloma, managed by oncology in the outpatient setting.
-On steroids and acyclovir.
Physical Exam
Vital Signs/Labs
Vital Signs
Temp Pulse Resp BP Pulse Ox
97.8 F 65 16 115/68 93
04/21/23 06:47 04/21/23 08:00 04/21/23 06:47 04/21/23 06:49 04/21/23 06:47
04/20/23 04/21/23 04/22/23
06:59 06:59 06:59
Actual Weight 134 lb 7.712 oz 134 lb 7.712 oz
04/20/23 04:01
04/20/23 04:01
PT 20.1 Sec (11.4-14.6) H 04/18/23 09:29
INR 1.73 04/18/23 09:29
APTT 35.1 Sec (23.4-35.0) H 04/18/23 09:29
04/18/23
09:29
Vjb-G-Ktxvytefmxa Pept [id number]
LAB Results
04/18/23 04/18/23 04/18/23
09:29 11:01 17:38
Troponin I 0.016 0.015 0.014
04/19/23
03:04
Troponin I 0.020
Physical Exam
Constitutional: No acute distress
Cardiovascular: Rhythm & rate is regular
Respiratory: Respiratory effort normal and Lungs clear to auscul.
Data Reviewed
-
Date of Service: April 21, 2023
EKG: Tracing Personally Visualized and interpreted
Echo: Report Reviewed by me
Labs: Labs Reviewed by me
[2023-04-21] MEDS: ELIQUIS 5 MG PO (09:35)
[2023-04-21] MEDS: LASIX 20 MG IV (09:35)
[2023-04-21] MEDS: CARDIZEM CD 240 MG PO (09:35)
[2023-04-21] MEDS: ZOVIRAX 400 MG PO (09:35)
[2023-04-21] MEDS: PROTONIX 40 MG PO (09:35)
[2023-04-21] MEDS: FLUSH (NSS) 2 FLUSH IV (09:36)
[2023-04-21 11:06] VITALS: BP 130/71
--- NOTE | 2023-04-21 11:37 | CM ---
Chart reviewed. Patient is independent of ADLS, currently living with her sister in a [address], ambulates with a rolling walker. PT is recommending Home PT. The patient is interested in receiving Home PT. [facility]. Plan is for the
patient to return home with VN. CM to follow
--- NOTE | 2023-04-21 12:08 | W.DCSUMMARY ---
Discharge Summary
Discharge Data
Date of Admission: 04/18/23
Date of Discharge: 04/21/23
-
Pending Results: No
Hospital Course
83 years old female presented with exertional shortness of breath that was going on for a few days to weeks. Patient was found to have acute heart failure with a preserved ejection fraction. She did not have signs of infection. Echocardiogram
showed normal left ventricular ejection fraction of 55% with mild to moderate mitral regurgitation. Patient was found to have atrial fibrillation with rapid ventricular response. Her rhythm continued to fluctuate between sinus rhythm and atrial
fibrillation and was diagnosed with paroxysmal atrial fibrillation. She was initially started on Cardizem drip and later changed to oral Cardizem. Heart rate became stable. Patient started to feel better. She did not need oxygen. She received
Lasix treatment. She was followed by sheep boner. She remained hemodynamically stable and was evaluated by physical therapy. Physical therapy recommended home health care. Patient was discharged in a stable condition.
Discharge Plan
-
Patient Disposition: Home with Home Care
Discharge Diagnosis/Procedures: Paroxysmal atrial fibrillation
Acute heart failure with preserved ejection fraction.
You received new medications including Lasix which is a diuretic. Cardizem which is for rate control, calcium channel breanne.
Follow-up with your primary care doctor within 1 to 2 weeks and repeat the blood work to monitor your kidney function and potassium level. Resume Eliquis 5 mg twice a day and follow-up with your sheep boner.
Diet: Low Sodium
Blood Work: BMP in one week
Referrals:
[facility] [Outside]
Edi Merrill MD [Family Provider] - in one to two weeks
Justino Virk MD [Active] - in two to three weeks
Prescriptions:
New
diltiazem HCl 240 mg Capsule,Extended Release 24hr
240 mg PO DAILY Qty: 30 0RF
furosemide 20 mg Tablet
20 mg PO DAILY Qty: 30 0RF
Continued
acetaminophen 325 MG tablet
650 mg PO Q6HPRN PRN (Reason: mild pain/ fever>100.5F) 0RF
dexamethasone 4 MG tablet
4 mg PO DIRECTED
Rx Instructions:
Take 5 tabs (20mg) on the morning of, then take 1 tabs (4mg) for 2 days after
omeprazole 20 MG capsule,delayed release(DR/EC)
20 mg PO DAILY PRN (Reason: Gastrointestinal issue)
montelukast [Singulair] 10 mg Tablet
10 mg PO DIRECTED
Rx Instructions:
take the night before, the night of and the night after Darzalex
acyclovir 400 mg tablet
400 mg PO BID
Darzalex
1 dose SC MONTHLY
Xgeva
1 dose SC [id number]
Eliquis 5 MG tablet
5 mg PO BID Qty: 0 0RF
Discharge Orders:
Discharge Patient (As Directed); Ordered 04/21/23
Ordered By: Gretchen Keene
Care Plan Goals
Care Plan Goals:
Problem: Readiness for enhanced knowledge related to diagnosis and treatment plan
Goal: Understand your diagnosis and treatment plan needs, including medications if applicable.
Instructions: Know your diagnosis, underlying causes and treatment plan options, including medications if applicable. Consult with your health care team to learn about your diagnosis and treatment plan, including medications if applicable.
--- NOTE | 2023-04-21 15:45 | PTCARENOTE ---
Pt discharged to home w/son providing transportation. Pt's son present for D/C instructions & he questioned dose of Eliquis 5mg BID. This RN confirmed w/SENIOR DEVELOPER, Kamilah & Eliquis dose is correct & pt advised not to make her own med adjustments w/o
contacting her fisher lampara net first. Pt's son questioning new CHF diagnosis & this RN spent approx 60 mins going over pt's lab work & symptoms indicating CHF diagnosed by the MDs, the CHF booklet & CHF D/C instructions w/pt & pt's son. Pt's IV line &
telemetry pack D/C'd. Pt D/C'd to sister's hm, w/son providing transportation.
== END 2023-04-21 15:57 | disposition home or self-care (01) | DRG 308 ==
LOC: IVU 12:18
PROVIDERS: Physician Assistant; ADMITTING PHYSICIAN Hospitalist; ATTENDING PHYSICIAN Internal Medicine; CONSULT PHYSICIAN Internal Medicine; EMERGENCY PHYSICIAN Emergency Medicine; FAMILY PHYSICIAN Internal Medicine
DX: I48.0 Paroxysmal atrial fibrillation (principal); I50.31 Acute diastolic (congestive) heart failure; C90.01 Multiple myeloma in remission; E87.1 Hypo-osmolality and hyponatremia; Z79.01 Long term (current) use of anticoagulants; K21.9 Gastro-esophageal reflux disease without esophagitis; I45.10 Unspecified right bundle-branch block; M81.0 Age-related osteoporosis without current pathological fracture; N18.31 Chronic kidney disease, stage 3a
CPT/HCPCS: 71045; 80048; 80053; 82962; 83880; 84443; 84484; 85025; 85610; 85730; 93005; 93306; 96365; 96366; 97163; 97166; 97530; 99291

== ENCOUNTER → 2023-05-04 11:13 | Outpatient (REF) | payer MEDICARE, OTHER, SELFPAY ==
[2023-05-04 12:31] LABS: % Basophils 1.1 % (0-2); % Eosinophils 1.8 % (0-6); % Immature Granulocytes 0.2 % (0-0.5); % Lymphocytes 23.7 % (20.5-51.1); % Monocytes 10.5 % (1.7-9.3); % Neutrophils 62.7 % (42.2-75.2); Absolute Basophils 0.1 10^3/uL (0-0.2); Absolute Eosinophils 0.1 10^3/uL (0-0.7); Absolute Lymphocytes 1.4 10^3/uL (1.2-3.4); Absolute Monocytes 0.6 10^3/uL (0.1-0.6); Absolute Neutrophils 3.6 10^3/uL (1.4-6.5); Hematocrit 42.1 % (37.0-47.0); Mean Corp Hgb Conc. 33.3 g/dL (33.0-37.0); Mean Corpuscular Hgb 29.9 pg (27.0-31.0); Mean Corpuscular Volume 89.8 fL (81.0-99.0); Mean Platelet Volume 9.2 fL (7.4-10.4); Nucleated Red Blood Cells % 0 %; Platelet Count 444 10^3/uL (130-400); Red Blood Cell Count 4.69 10^6/uL (4.20-5.40); White Blood Cell Count 5.7 10^3/uL (4.8-10.8)
[2023-05-04 12:55] LABS: ALT (SGPT) 44 U/L (0-35); AST (SGOT) 30 U/L (14-36); Albumin 4.2 g/dl (3.5-5.0); Alkaline Phosphatase 78 U/L (38-126); Blood Urea Nitrogen 22 mg/dl (7-17); Calcium 10.6 mg/dl (8.4-10.2); Carbon Dioxide 29 mmol/L (22-30); Chloride 96 mmol/L (98-107); Glucose 98 mg/dl (70-99); Potassium 4.1 mmol/L (3.5-5.1); Sodium 138 mmol/L (135-145); Total Bilirubin 0.9 mg/dl (0.2-1.3); Total Protein 6.5 g/dl (6.3-8.2); eGFR 44.36
== END ==
LOC: REG 11:13
PROVIDERS: ATTENDING PHYSICIAN Internal Medicine Hematology & Oncology; FAMILY PHYSICIAN Nurse Practitioner Adult Health; REFERRING PHYSICIAN Internal Medicine Cardiovascular Disease
DX: R79.9 Abnormal finding of blood chemistry, unspecified (principal); C90.00 Multiple myeloma not having achieved remission
CPT/HCPCS: 36415; 80053; 85025

== ENCOUNTER → 2023-05-07 15:10 | Outpatient (REF) | payer MEDICARE, OTHER, SELFPAY ==
[2023-05-10 10:49] LABS: Beta-2-Microglobulin 3.4 mg/L (<=3.0)
[2023-05-12 00:27] LABS: Albumin 4.17 g/dL (3.75-5.01); Alpha 1 Globulin 0.34 g/dL (0.19-0.46); Alpha 2 Globulin 0.96 g/dL (0.48-1.05); Free Kappa Light Chains,Quant 10.54 mg/L (3.30-19.40); Free Lambda Light Chains,Quant 5.53 mg/L (5.71-26.30); IgA 27 mg/dL (68-408); IgG 351 mg/dL (768-1632); IgM 46 mg/dL (35-263); Immunofixation Electrophoresis IFE Done; Kappa/Lambda Fr Light Ratio 1.91 (0.26-1.65); Total Protein-Electrophoresis 6.6 g/dL (6.3-8.2)
== END ==
LOC: OIDL 15:10
PROVIDERS: ATTENDING PHYSICIAN Internal Medicine Hematology & Oncology
DX: C90.00 Multiple myeloma not having achieved remission (principal)
CPT/HCPCS: 82232; 82784; 83521; 84155; 84165; 86334

== ENCOUNTER → 2023-11-06 14:47 | Outpatient (REF) | payer MEDICARE, OTHER, SELFPAY ==
[2023-11-06 16:25] LABS: Urine Albumin Negative (Neg - Trace); Urine Bilirubin Negative (Negative); Urine Character Very Cloudy (Clear); Urine Color Yellow; Urine Glucose Negative (Negative); Urine Ketone Negative (Negative); Urine Leukocyte 2+ (Negative); Urine Nitrite Positive (Negative); Urine Occult Blood Trace (Negative); Urine Urobilinogen Negative (Neg - 1+)
[2023-11-06 16:50] LABS: Urine Amorphous Seen
[2023-11-06 16:51] LABS: Urine Bacteria Many (Negative); Urine Red Blood Cell 0-2 /HPF (0-2); Urine White Cell 16-20 /HPF (0-5)
== END ==
LOC: REG 14:47
PROVIDERS: ATTENDING PHYSICIAN Internal Medicine Hematology & Oncology; FAMILY PHYSICIAN Nurse Practitioner Adult Health
DX: C90.00 Multiple myeloma not having achieved remission (principal); N39.0 Urinary tract infection, site not specified
CPT/HCPCS: 36415; 81003; 81015; 87077; 87086; 87186

== ENCOUNTER → 2024-01-29 13:16 | Outpatient (REF) | payer OTHER, SELFPAY ==
[2024-01-29 14:29] LABS: Urine Albumin Negative (Neg - Trace); Urine Bilirubin Negative (Negative); Urine Character Slightly Cloudy (Clear); Urine Color Yellow; Urine Glucose Negative (Negative); Urine Ketone Negative (Negative); Urine Leukocyte 2+ (Negative); Urine Nitrite Positive (Negative); Urine Occult Blood Negative (Negative); Urine Urobilinogen Negative (Neg - 1+)
[2024-01-29 15:30] LABS: Urine Squamous Cell >30 /LPF (Few)
[2024-01-29 15:31] LABS: Urine Red Blood Cell 0-2 /HPF (0-2)
[2024-01-29 15:32] LABS: Urine Bacteria Many (Negative)
== END ==
LOC: REG 13:16
PROVIDERS: ATTENDING PHYSICIAN Internal Medicine Hematology & Oncology; FAMILY PHYSICIAN Nurse Practitioner Adult Health
DX: C90.00 Multiple myeloma not having achieved remission (principal); R30.0 Dysuria; N39.0 Urinary tract infection, site not specified
CPT/HCPCS: 81003; 81015

== ENCOUNTER 2024-02-06 16:13 | Inpatient (IN) | payer MEDICARE, OTHER, SELFPAY ==
[2024-02-06] VITALS (21 sets, daily range): BP systolic 88–169; BP diastolic 51–105; BMI 23.5
[2024-02-06] MEDS: CARDIZEM 15 MG IV (10:24)
[2024-02-06 10:28] LABS: % Basophils 0.3 % (0-2); % Eosinophils 0.6 % (0-6); % Immature Granulocytes 0.3 % (0-0.5); % Lymphocytes 12.2 % (20.5-51.1); % Monocytes 5.8 % (1.7-9.3); % Neutrophils 80.8 % (42.2-75.2); Absolute Eosinophils 0.1 10^3/uL (0-0.7); Absolute Lymphocytes 1.3 10^3/uL (1.2-3.4); Absolute Monocytes 0.6 10^3/uL (0.1-0.6); Absolute Neutrophils 8.6 10^3/uL (1.4-6.5); Mean Corp Hgb Conc. 32.5 g/dL (33.0-37.0); Mean Corpuscular Hgb 30.2 pg (27.0-31.0); Mean Platelet Volume 9.2 fL (7.4-10.4); Nucleated Red Blood Cells % 0 %; Platelet Count 339 10^3/uL (130-400); Red Cell Dist. Width 14.6 % (11.5-14.5); White Blood Cell Count 10.6 10^3/uL (4.8-10.8)
[2024-02-06 10:47] LABS: Blood Urea Nitrogen 38 mg/dl (7-17); Calcium 9.2 mg/dl (8.4-10.2); Carbon Dioxide 23 mmol/L (22-30); Chloride 106 mmol/L (98-107); Glucose 103 mg/dl (70-99); Sodium 143 mmol/L (135-145); eGFR > 60.00
[2024-02-06 11:14] LABS: TSH Reflex To Free T4 3.41 uIU/ml (0.47-4.68)
[2024-02-06] MEDS: CARDIZEM 125 IV ×2 (11:28→22:14)
[2024-02-06] MEDS: NSS 500 IV (11:34)
--- NOTE | 2024-02-06 15:43 | ED.GENMED ---
History of Present Illness
General
Chief Complaint: Heart Rate Problem
Source: patient, records and family (Sister)
Exam Limitations: none
Time Seen by Provider: 02/06/24 10:06
Nursing documentation reviewed up to this point in time: agreed with
History of Present Illness
History of Present Illness:
83-year-old female with a past medical history of atrial fibrillation on Eliquis (2.5 mg twice daily) who presents to the emergency room for evaluation of chest discomfort, palpitations and tachycardia. Patient reports onset of symptoms this
morning around 5 AM and they have been constant since that time. She reports a vague discomfort in the chest radiating to the shoulders. Associated with palpitations and noted tachycardia on heart monitor. She also reports some mild shortness of
breath. Denies any dizziness. Denies any swelling in the legs. She says the symptoms are identical to prior episodes of rapid atrial fibrillation. She had been following with Dr. Virk prior to his jail, has not yet seen another
physician and CBC at cardiology office. She is on Eliquis but takes 2.5 mg twice daily dosing.
Past History
Past History
ED Past Medical History: Arrthythmia
ED Past Surgical History: Orthopedic
Social History
Tobacco: Non-smoker
Alcohol: None
Drug: None
Personal: Other (With her sister)
Living: with family
Review of Systems
Review of Systems
All Other Systems: ROS reviewed and negative except as documented in HPI and ROS
Respiratory: Reports trouble breathing
Cardiac: Reports chest pain and palpitations; Denies diaphoresis
ABD/GI: Denies abdominal pain, nausea or vomiting
: Denies flank pain
Musculoskeletal: Denies edema, neck pain or back pain
Neurological: Denies dizzy or headache
Phy Exam
Physical Exam
Physical Exam:
General: Awake, alert, oriented x3; no acute distress
Head: Normocephalic, atraumatic
Eyes: Conjunctiva normal
Throat: Airway intact, handling secretions
Neck: Trachea midline, no JVD
Lungs: Clear to auscultation bilaterally, no wheezing, rales, rhonchi
Heart: Tachycardia with irregularly irregular rhythm, no murmurs, gallops, or rubs appreciated within the limits of marked tachycardia
Abd: Soft, non distended, nontender
Neuro: No gross deficits
Skin: no rash
Extremities: No edema in extremities, equal pulses in all extremities
Scores
Heart Failure Risk
Heart Failure Risk Score: Not Applicable
Heart Score for Chest Pain Patients
STEMI patient?: Not applicable
Withdrawal Assessment of Alcohol
Withdrawal Assessment Completed?: Not applicable
Course
Orders/Labs/Results
Orders:
Orders
02/06/24 09:52
Electrocardiogram (*1) Urgent
Reason for Study: Atrial Fibrillation
EKG- Treatment ONCE
02/06/24 10:13
Diltiazem HCl [Cardizem] 15 mg IV NOW STA
02/06/24 10:21
Basic Metabolic Panel Urgent
Complete Blood Count/With Diff Urgent
TSH Reflex To Free T4 Urgent
02/06/24 11:11
0.9% Sodium Chloride 500 ml [Nss] 500 ml IV BOLUS
Diltiazem 125 mg/125 ml Nss [Cardizem] 125 mg in 125 ml IV NOW
Initial dose in mg/hr, then titrate:: 5
Titrate to keep:: Heart rate 80-100 bpm
Titrate by mg/hr:: 5 mg/hr
Frequency of titrations (minutes):: 15
Maximum dose in mg/hr:: 15
Abnormal Lab Results
02/06/24
10:21
MCHC 32.5 L g/dL
(33.0-37.0)
RDW 14.6 H %
(11.5-14.5)
Absolute Neuts (auto) 8.6 H 10^3/uL
(1.4-6.5)
Neutrophils % 80.8 H %
(42.2-75.2)
Lymphocytes % 12.2 L %
(20.5-51.1)
BUN 38 H mg/dl
(7-17)
Glucose 103 H mg/dl
(70-99)
02/06/24 10:21
02/06/24 10:21
Vital Signs
Initial and Last Documented VS:
Initial Vital Signs
Temp Pulse Resp BP Pulse Ox
36.7 C 125 18 169/105 98
02/06/24 09:54 02/06/24 09:54 02/06/24 09:54 02/06/24 09:54 02/06/24 09:54
Last Documented Vital Signs
Temp Pulse Resp BP Pulse Ox
36.7 C 119 25 104/61 96
02/06/24 09:54 02/06/24 15:02 02/06/24 15:02 02/06/24 14:30 02/06/24 15:02
MDM/Problems Addressed
Differential Diagnosis Includes:
Symptomatic rapid atrial fibrillation
MDM/Problems Addressed:
83-year-old female presents for evaluation of palpitations, tachycardia, chest discomfort similar to prior episodes of rapid atrial fibrillation. Hypertensive and tachycardic in triage�heart rate 200 on my initial assessment. EKG shows atrial
fibrillation with RVR. IV established labs sent off including a CBC and a CMP, thyroid studies. Case discussed with cardiology�concerned that patient is not therapeutically anticoagulated as she weighs 61.1 kg today and has normal renal function
in the past which typically would require 5 mg twice daily dose. Cardiology confirmed that current dosing is subtherapeutic based on current weight and renal function. For this reason not a good candidate for ED cardioversion. Will pursue rate
control measures with IV diltiazem bolus.
Labs reviewed: CBC and CMP unremarkable�renal function normal. Thyroid studies normal. Reassessment after diltiazem bolus heart rate improved but still quite elevated 160�170. Will start on diltiazem infusion. Previously patient converted to
sinus rhythm while on infusion.
Observed in the emergency room for 5+ hours�she is currently on 10 mg/h of diltiazem with heart rate 120�130. Symptoms have improved. No longer has any chest discomfort. Unfortunately still in atrial fibrillation with significant tachycardia.
Blood pressure has been somewhat soft which is limiting titration of diltiazem. Will provide some fluids as we titrate upward. Will plan to admit at this point for continued treatment of atrial fibrillation with RVR.
Chronic conditions affecting care:
Atrial fibrillation
*Pulse Oximetry
Patient hypoxic: no
*EKG
Interpreted by ED Provider?: Yes
Heart Rate: 188
Rate: tachycardiac
Rhythm: a-fib
[place]: normal axis
Interval: normal interval
QRS Pattern: right bundle branch block (Incomplete)
Ischemia: non-specific ST changes
*Critical Care Note
Total Time (30-74mins, 75-104mins- exclusive of procedures): 33
comment:
Critical care statement: A total of 33 minutes of critical care time was provided for this patient. This includes management of unstable vital signs, evaluation of the patient at bedside, frequent reassessment, discussion with
consultants/hospitalist, and review of pertinent medical records. This time was separate from time utilized to perform any aforementioned documented procedures
Data Reviewed
Review of Other/Old Records Reveals: Labs and Records
Source: patient, records and family
Patient Management
Discussion with other providers: Hospitalist (Discussed with hospitalist) and [employer] Adf Developer (Discussed with site planner)
Escalation/DeEscalation of care consider admission/obs:
Admission indicated
ED Attending Note
-
Portions of this chart may have been created with voice recognition software.� Occasional wrong word or��sound alike� substitutions may have occurred due to the inherent limitations of voice recognition software.
Discharge Plan
Departure
Patient Disposition: Admit
Date of Disposition: 02/06/24
Time of Disposition: 15:14
Admit to doctor: Gilda
Presentation/result/management discussed w/ accepting MD/DO: Hospitalist
Discharge Problem:
Atrial fibrillation with RVR
Prescriptions:
No Action
dexamethasone 4 MG tablet
4 mg PO DIRECTED
Rx Instructions:
Take 5 tabs (20mg) on the morning of, then take 1 tabs (4mg) for 2 days after
omeprazole 20 MG capsule,delayed release(DR/EC)
20 mg PO DAILYPRN PRN (Reason: Gastrointestinal issue)
montelukast [Singulair] 10 mg Tablet
10 mg PO DIRECTED
Rx Instructions:
take the night before, the night of and the night after Darzalex
acyclovir 400 mg tablet
400 mg PO BID
Darzalex
1 dose SC MONTHLY
Xgeva
1 dose SC [id number]
biotin 10 mg Tablet
10 mg PO DAILY
Theragen Tablet
1 tab PO DAILY
ibuprofen [Advil] 200 mg Tablet
400 mg PO Q8HPRN PRN (Reason: mild pain)
magnesium oxide 500 mg magnesium Tablet
500 mg PO DAILY
cholecalciferol (vitamin D3) [Vitamin D3] 25 mcg (1,000 unit) Tablet
25 mcg PO DAILY
Eliquis 5 MG tablet
2.5 mg PO BID
Referrals:
Thierry Wilson CRNP [Family Provider] -
Interventions
Interventions:
*Risk Screen - Suicide Last Done: 02/06/24 09:54
*General Assessment Last Done: 02/06/24 10:10
*Neglect/Abuse Screening Last Done: 02/06/24 09:54
*ED COVID-19 Vaccine History Last Done: 02/06/24 10:26
ED- Pulmonary Assessment Last Done: 02/06/24 10:11
ED- Cardiac Assessment Last Done: 02/06/24 10:11
Discharge Date and Time
Print Language: MICRONESIAN
--- NOTE | 2024-02-06 16:21 | CM ---
Chart reviewed. Patient here for A-fib. On dilt gtt. Already on Eliquis. CM introduced self and role. Patient's sister also in room. Patient has a home in [place], but has been staying with her sister for some time now, due to her health history. Her son
still resides at her home [place]. She is independent. She has not driven for 4 years. Her sister will provide transportation once she is discharged. She owns a walker, cane and wheelchair. There is one step to enter into her sister's home. It is a
home. She has active PCP and pharmacy. She denies any +SDOHs. 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
ANTICIPATED DISCHARGE DISP: Home with sister, once medically cleared.
--- NOTE | 2024-02-06 18:45 | HPS.HSE ---
Family Physician
-
Family Physician: Thierry Wilson
Chief Complaint
-
rapid afib
History of Present Illness
83-year-old woman with aPMH of atrial fibrillation on Eliquis (2.5 mg twice daily) who comes in with chest discomfort, palpitations and tachycardia. Onset of symptoms this morning around 5 AM and it has been constant since that time. Vague
discomfort in the chest radiating to the shoulders, associated with palpitations and noted tachycardia (she has a wrist heart monitor), and also mild shortness of breath. No dizziness, any swelling in the legs. She says the symptoms are identical
to prior episodes of rapid atrial fibrillation. She had been following with Dr. Virk but has not yet seen another physician and CBC at cardiology office. She is on Eliquis but takes 2.5 mg twice daily dosing. At the time of my interview, she
was comfortable, on a dilt gtt, with a rate of 100.
Medical History
Past Medical History
Past Medical History: Reports Other
Additional Past Medical History:
multiple myloma 2020
Paroxysmal Atrial fibrillation 2020
Severe Osteoporosis
Right femur ORIF 05.17.2020
Admitted to . A fib, Discharged 05/03/20.
Admitted to . Groin pain, prophylactic rodding of R femur on 05/17/20. Discharged to [facility] on 05/19/20.
Admitted to . A fib, discharged 06/12/20.
Admitted to . Enterocolitis, likely chemo induced. Discharged 08/06/20.
AFIB 04/18/23
immunodeficiency
Past Surgical History: Reports Other
Additional Past Surgical History:
See above
Social History
Tobacco: Non-smoker
Alcohol: None
Drug: None
Family History
Family History: Not pertinent
Allergies / Home Medications
Allergies reflects when Allergies were last updated in [employer].
Home Medications with original date entered in [employer]
Allergy/Medication List:
Allergies
Allergy/AdvReac Type Severity Reaction Status Date / Time
No Known Allergies Allergy Verified 02/06/24 10:00
Home Medications
dexamethasone 4 mg tablet 4 mg PO DIRECTED Cancer 08/01/20
omeprazole 20 mg capsule,delayed release 20 mg PO DAILYPRN PRN Gastrointestinal issue 08/01/20
Darzalex 1 dose SC MONTHLY Cancer 04/18/23
Xgeva 1 dose SC [id number] Autoimmune Disorder 04/18/23
acyclovir 400 mg tablet 400 mg PO BID Infection Prophylaxis 04/18/23
montelukast 10 mg tablet (Singulair) 10 mg PO DIRECTED Allergies 04/18/23
apixaban 5 mg tablet (Eliquis) 2.5 mg PO BID Blood Clot Prevention/Tx 02/06/24
biotin 10 mg tablet 10 mg PO DAILY 02/06/24
cholecalciferol (vitamin D3) 25 mcg (1,000 unit) tablet (Vitamin D3) 25 mcg PO DAILY 02/06/24
ibuprofen 200 mg tablet (Advil) 400 mg PO Q8HPRN PRN mild pain 02/06/24
magnesium oxide 500 mg PO DAILY 02/06/24
therapeutic multivitamin 1 tab PO DAILY 02/06/24
Review of Systems
-
History Source: Patient
A 12 point ROS was completed and negative except as noted: Yes
Physical Exam
Vital Signs
Vital Signs
Temp Pulse Resp BP Pulse Ox
98.0 F 95 18 115/57 90
02/06/24 09:54 02/06/24 17:30 02/06/24 17:30 02/06/24 17:30 02/06/24 17:30
Physical Exam
General: Well Developed, Well Nourished and No Apparent Distress
HEENT: NormoCephalic
Respiratory: Clear
Cardiac: S1/S2, Irregular Rhythm and Tachycardia
GI: Soft, Non Tender and Non Distended
Musculoskeletal: No Clubbing, No Cyanosis and No Edema
Skin: Warm and Dry; No Rash or Jaundice
Neuro: Awake, Alert, Oriented and AO x 3
Psych: Calm
Laboratory Results
-
02/06/24 10:21
02/06/24 10:21
Laboratory Results
Total Bilirubin Cancelled 02/06/24 10:21
AST Cancelled 02/06/24 10:21
ALT Cancelled 02/06/24 10:21
Alkaline Phosphatase Cancelled 02/06/24 10:21
Data Reviewed
-
Lab Data: Labs Reviewed by me
Impression/Plan
-
IMPRESSION:
83 woman with episode of afib, and h/o past episodes of afib. Recent stress/sadness from thinking about of son.
BUN/Creat 38/0.9
Ca 9.2
TSH 3.41
PLAN:
1. paroxismal afib - on dilt gtt, may have been triggered by emotional stress.
Continue gtt
IVU admit
SARIAH
Cardiology consult
2. BUN/Creat > 20, at 38/0.9
IV saline
Recheck in am
Full code
VCD for DVTp (as well as eliquis)
--- NOTE | 2024-02-06 21:00 | PTCARENOTE ---
pt received from ed to 2245. pt in afib on monitor. cardizem drip infusing at 10 ml. hr 100-140 with exertion. 90's at rest.pt oriented to room and unit. pleasant and cooperative. denies pain or discomfort.ekg done and blood sent to lab.
[2024-02-06 21:05] LABS: Magnesium 2.1 mg/dl (1.6-2.3)
[2024-02-06 21:06] LABS: Troponin I 0.013 ng/ml
[2024-02-06] MEDS: NSS 1000 IV (21:55)
[2024-02-06] MEDS: ZOVIRAX 400 MG PO (22:15)
[2024-02-06] MEDS: ELIQUIS 2.5 MG PO (22:15)
--- NOTE | 2024-02-06 22:30 | PTCARENOTE ---
pt resting comfortably. hr noted to drop to 70's. bp 95/62. cardizem drip decreased to 5 ml. will observe.
[2024-02-07] VITALS (12 sets, daily range): BP systolic 90–158; BP diastolic 48–87; BMI 23.9
--- NOTE | 2024-02-07 00:15 | PTCARENOTE ---
pt oob to bedside commode and back to bed. hr noted to burst to 140's. bp 108/79. cardizem drip increased back to 10 ml.pt emotional at times talking about son's recent passing. support provided frequently.
[2024-02-07] MEDS: MOTRIN 400 MG PO (00:59)
--- NOTE | 2024-02-07 01:21 | PTCARENOTE ---
ekg and troponin done. pt assisted with repositioning. pt c/o back pain. states she takes motrin at home for this. 400 mg motrin given as ordered for pain.support provided.
[2024-02-07 01:26] LABS: Troponin I < 0.012 ng/ml
[2024-02-07 04:38] LABS: Hematocrit 31.9 % (37.0-47.0); Hemoglobin 10.9 g/dL (12.0-16.0); Mean Corp Hgb Conc. 34.2 g/dL (33.0-37.0); Mean Corpuscular Hgb 31.7 pg (27.0-31.0); Mean Corpuscular Volume 92.7 fL (81.0-99.0); Mean Platelet Volume 9.4 fL (7.4-10.4); Platelet Count 263 10^3/uL (130-400); Red Blood Cell Count 3.44 10^6/uL (4.20-5.40); Red Cell Dist. Width 14.6 % (11.5-14.5); White Blood Cell Count 8.8 10^3/uL (4.8-10.8)
[2024-02-07 04:43] LABS: ALT (SGPT) 19 U/L (0-35); AST (SGOT) 21 U/L (14-36); Albumin 3.5 g/dl (3.5-5.0); Alkaline Phosphatase 49 U/L (38-126); Blood Urea Nitrogen 31 mg/dl (7-17); Calcium 8.4 mg/dl (8.4-10.2); Carbon Dioxide 21 mmol/L (22-30); Chloride 110 mmol/L (98-107); Estimated Creatinine Clearance 43 ml/min; Glucose 109 mg/dl (70-99); Potassium 4.6 mmol/L (3.5-5.1); Sodium 143 mmol/L (135-145); Total Bilirubin 0.4 mg/dl (0.2-1.3); Total Protein 5.4 g/dl (6.3-8.2); eGFR > 60.00
[2024-02-07] MEDS: NSS 1000 IV (07:51)
[2024-02-07] MEDS: PROTONIX 40 MG PO (08:29)
[2024-02-07] MEDS: THERAGRAN 1 TABLET PO (08:29)
[2024-02-07] MEDS: MAGNESIUM OXIDE 500 MG PO (08:29)
[2024-02-07] MEDS: VITAMIN D3 (cholecalciferol) 25 MCG PO (08:31)
[2024-02-07] MEDS: ZOVIRAX 400 MG PO ×2 (08:32→19:54)
[2024-02-07] MEDS: ELIQUIS 5 MG PO ×2 (08:41→19:54)
[2024-02-07] MEDS: ELIQUIS PO (08:41)
--- NOTE | 2024-02-07 08:49 | CON.CAR ---
Consultation
Consultation Request
Date/Time Consultation Requested: 02/07/24, 7am
Date/Time Consultation Performed: 02/07/24, 745am
Requesting Provider: Carmelina
Performing Provider: Remington
Reason for Consultation: A fib with RVR
Medical History
-
Chief Complaint: palps
History of Present Illness:
83 yo female with PMH of paroxysmal A fib on eliquis, RBBB, chronic HFPEF, multiple myeloma presented to ED with palps. She is typically in NSR, and then felt palps and SOB, and some chest tightness; so presented to ED. She was found to be in A
fib with RVR.
Of note, she was on eliquis 2.5mg dose. She had lost weight earlier this year after of her son, but now her weight has trended back above 60kg.
Past Medical History
Past Medical History: Arrhythmias (paroxysmal A fib), CHF (chronic HFPEF) and Other (multiple myeloma)
Past Surgical History: Orthopedic (right femur 2020)
Social History
Tobacco: Non-Smoker
Family History
Family History: Early CAD (none)
Allergies / Home Medications
Allergy/AdvReac Type Severity Reaction Status Date / Time
No Known Allergies Allergy Verified 02/06/24 10:00
�Medication �Instructions �Recorded �Confirmed �Type
dexamethasone 4 mg tablet 4 mg PO DIRECTED Cancer 08/01/20 02/06/24 History
omeprazole 20 mg capsule,delayed 20 mg PO DAILYPRN PRN 08/01/20 02/06/24 History
release Gastrointestinal issue
Darzalex 1 dose SC MONTHLY Cancer 04/18/23 02/06/24 History
Xgeva 1 dose SC [id number] Autoimmune 04/18/23 02/06/24 History
Disorder
acyclovir 400 mg tablet 400 mg PO BID Infection Prophylaxis 04/18/23 02/06/24 History
montelukast 10 mg tablet 10 mg PO DIRECTED Allergies 04/18/23 02/06/24 History
(Singulair)
apixaban 5 mg tablet (Eliquis) 2.5 mg PO BID Blood Clot 02/06/24 02/06/24 History
Prevention/Tx
biotin 10 mg tablet 10 mg PO DAILY 02/06/24 02/06/24 History
cholecalciferol (vitamin D3) 25 25 mcg PO DAILY 02/06/24 02/06/24 History
mcg (1,000 unit) tablet (Vitamin
D3)
ibuprofen 200 mg tablet (Advil) 400 mg PO Q8HPRN PRN mild pain 02/06/24 02/06/24 History
magnesium oxide 500 mg PO DAILY 02/06/24 02/06/24 History
therapeutic multivitamin 1 tab PO DAILY 02/06/24 02/06/24 History
Review of Systems
-
History Source: Patient
All other systems: Negative unless noted
Respiratory: Trouble Breathing
Cardiac: Chest Pain and Palpitations
Physical Exam
Vital Signs
Temp Pulse Resp BP Pulse Ox
98.5 F 82 20 105/66 95
02/07/24 07:40 02/07/24 08:15 02/07/24 07:40 02/07/24 07:41 02/07/24 07:40
Lab Results
02/07/24 04:00
02/07/24 04:00
Troponin I < 0.012 ng/ml 02/07/24 00:55
Physical Exam
General: Well Developed and Well Nourished
HEENT: Normocephalic and Anicteric
Respiratory: Clear and Non Labored Respirations
Cardiac: S1/S2 (normal ), Irregular Rhythm, Peripheral Edema (none) and JVD (none)
GI: Soft and Non Tender
Musculoskeletal: No Clubbing, No Cyanosis and No Edema
Skin: Warm and Dry
Neuro: AO x 3
Psych: Calm
Impression / Plan
-
83 yo female with PMH of paroxysmal A fib on eliquis, RBBB, chronic HFPEF, multiple myeloma presented to ED with palps. She is typically in NSR, and then felt palps and SOB, and some chest tightness; so presented to ED. She was found to be in A
fib with RVR.
# Afib with RVR, severe, symptomatic
-rate is better on diltiazem drip, which requires monitoring by tele
-as outpatient, she had constipation with PO diltiazem, so it was stopped
-we discussed KATHIE/DCCV: she is unsure if she would want this
-will make NPO for AM, and re-assess at that time if still in A fib
-CHADS2-VASC = 4. She was on eliquis 2.5mg bid, but now changed to 5mg bid, as weight is above 60kg (she lost weight after of her son, then gained back)
# Chronic HFPEF: stable, lasix prn
# RBBB: chronic, stable
# Mild/moderate MR
Studies
Echo 04/20/23: EF 50-55%, mild/mod MR, aortic sclerosis
Data Reviewed
-
EKG: Tracing Personally Visualized and interpreted (A fib, iRBBB)
Medical Tests (Nuc Med, Echo etc): Report Reviewed by me (Echo 04/20/23: EF 50-55%, mild/mod MR, aortic sclerosis)
Labs: Labs Reviewed by me
Old Records: Reviewed (outpatient records)
[2024-02-07 09:10] LABS: Troponin I < 0.012 ng/ml
--- NOTE | 2024-02-07 10:25 | PTCARENOTE ---
Assumed care of pt from night RN. Pt received awake and alert, Ox3, VSs, CM shows AF 80's, POX 95% on RA. Cardizem drip infusing through LFA at 10 mg/hr. Eliquis increased to 5 mg BID per cards. For potential CV in am.
--- NOTE | 2024-02-07 10:45 | PTCARENOTE ---
Called into room with CM alarm. Pt c/o dizziness and h/a. Six second pause noted CM, stat EKG shows pt back in NSR 60's. Martine umanzor d/c'd per Dr. Macedo. Will continue to monitor closely.
--- NOTE | 2024-02-07 10:50 | W.PN.HOSP.TC ---
Today's Communication/Plan
-
for CV in Am if not in sinus
Assessment / Plan
Assessment / Plan
pt is an 83 year old female
paroxysmal afib --cont cardizem drip--apprec cards--HR improved but not in Sinus--for cardioversion in AM if still in afib--cont eliquis-- may have been triggered by emotional stress.
metabolic acidosis--HCO3 is 21 on labs--on NSS--follow for now--stop IVF
History of multiple myeloma-- noted
code status--Full code
DVT proph--Eliquis
Anticipated Discharge: 24 - 48 hours
Subjective/Interval History
-
Date of Service: February 07, 2024
pt without c/o, can feel her HR increase
Objective Data
-
Labs:
Laboratory Results
02/07/24
04:00
WBC 8.8
Hgb 10.9 L
Hct 31.9 L
Plt Count 263 D
Sodium 143
Potassium 4.6
Chloride 110 H
Carbon Dioxide 21 L
BUN 31 H
Creatinine 0.8
Glucose 109 H
Calcium 8.4
Total Bilirubin 0.4
AST 21
ALT 19
Alkaline Phosphatase 49
Vital Signs:
max temp for 24 hours
02/07/24
07:40
Temp 98.5 F
Vital Signs
Temp Pulse Resp BP Pulse Ox
98.5 F 82 20 105/66 95
02/07/24 07:40 02/07/24 08:15 02/07/24 07:40 02/07/24 07:41 02/07/24 10:16
Review of Systems
-
All other systems: Reviewed and negative
Physical Exam
-
General: Well Developed, Well Nourished and No Apparent Distress
HEENT: Normocephalic and Atraumatic
Respiratory: Clear to Auscultation; Negative Wheezes or Rhonchi
Cardiac: Irregular Rhythm
GI: Soft, Nontender, Nondistended and Normal Bowel Sounds
Musculoskeletal: No Clubbing, No Cyanosis and No Edema
Skin: Warm and Dry
Neuro: Awake, Alert and Nonfocal/Grossly Intact
Psych: Calm
[2024-02-07 12:21] LABS: Glycohemoglobin (HgbA1c) 5.3 % (4.0-5.6)
--- NOTE | 2024-02-07 13:15 | W.PN.UPDATE ---
Update Note
Progress Note Update
patient converted to sinus with 7 second conversion pause while on diltiazem drip. Stop diltiazem drip. Trend tele. EP evaluation in AM.
--- NOTE | 2024-02-07 21:37 | PTCARENOTE ---
Pt. received at change of shift. Pt. seen and assessed in room. Pt AOx3, tele reading NSR w BBB. Pt. OOB bedside commode with no difficulty. No complaints of pain at this time. This RN explained plan of care to patient, pt verbalizes understanding.
Continuing to monitor at this time.
[2024-02-08] VITALS (9 sets, daily range): BP systolic 140–181; BP diastolic 74–95; BMI 23.8
[2024-02-08] MEDS: ZOVIRAX 400 MG PO ×2 (09:03→19:36)
[2024-02-08] MEDS: PROTONIX 40 MG PO (09:03)
[2024-02-08] MEDS: MAGNESIUM OXIDE 500 MG PO (09:03)
[2024-02-08] MEDS: THERAGRAN 1 TABLET PO (09:03)
[2024-02-08] MEDS: VITAMIN D3 (cholecalciferol) 25 MCG PO (09:03)
--- NOTE | 2024-02-08 10:42 | W.PN.CD ---
Today's Communication / Plan
-
- PPM today
Impression / Plan
-
83 yo female with PMH of paroxysmal A fib on eliquis, RBBB, chronic HFPEF, multiple myeloma presented to ED with palps. She is typically in NSR, and then felt palps and SOB, and some chest tightness; so presented to ED. She was found to be in A
fib with RVR.
# Afib with RVR, severe, symptomatic
-Converted to sinus with significant conversion pause of 7 seconds.
-rate is better on diltiazem drip, which requires monitoring by tele
-as outpatient, she had constipation with PO diltiazem, so it was stopped
- With pause, off the Diltiazem drip.
-CHADS2-VASC = 4. She was on eliquis 2.5mg bid, but now changed to 5mg bid, as weight is above 60kg (she lost weight after of her son, then gained back)
# sinus pause
- Long Conversion pause
- Symptomatic with multiple slower rates before conversion and longest was 7 seconds.
- Plan for PPM today.
- Can start Metoprolol 50 mg QD after PPM.
# Chronic HFPEF: stable, lasix prn
# RBBB: chronic, stable
# Mild/moderate MR
Studies
Echo 04/20/23: EF 50-55%, mild/mod MR, aortic sclerosis
Physical Exam
Vital Signs/Labs
Vital Signs
Temp Pulse Resp BP Pulse Ox
98.1 F 66 18 164/74 95
02/08/24 08:20 02/08/24 03:04 02/08/24 08:20 02/08/24 03:00 02/08/24 08:20
02/07/24 02/08/24 02/09/24
06:59 06:59 06:59
Actual Weight 60.1 kg 60.9 kg
02/07/24 04:00
02/07/24 04:00
Magnesium 2.0 mg/dl (1.6-2.3) 02/07/24 04:00
LAB Results
02/06/24 02/06/24 02/07/24
20:32 22:48 00:55
Troponin I 0.013 Cancelled < 0.012
02/07/24
08:40
Troponin I < 0.012
Physical Exam
Constitutional: No acute distress and Comfortable
EENT: Anicteric and Moist mucous membranes
Cardiovascular: Rhythm & rate is regular, Pedal edema is absent and Systolic murmur present
Respiratory: Respiratory effort normal and Wheeze Absent
GI: Soft, Normal bowel sounds and Distention present
Neuro/Psych: Alert, Oriented and AO x 3
Other: Cardiac Device Site
Data Reviewed
-
Date of Service: February 08, 2024
Medical Decision Making: Reviewed Test Results
EKG: Tracing Personally Visualized and interpreted
Echo: Report Reviewed by me
Medical Tests (PFT, Pathology etc): Discussed with Physician, Discussed with Patient and Discussed with Family
Labs: Labs Reviewed by me
Old Records: Reviewed
--- NOTE | 2024-02-08 11:15 | PTCARENOTE ---
received patient this am, Dr. Ye in room talking to patient about pacemaker placement today. patient is in disbelief that she needs a pacemaker, wants to talk with her sister and son. they are presently in room and talked to all 3, she has
agreed to proceed with pacemaker. patient has remained NPO. monitor shows NSR, VSS.
--- NOTE | 2024-02-08 11:25 | W.PN.HOSP.TC ---
Today's Communication/Plan
-
Pacemaker placement
Assessment / Plan
Assessment / Plan
83 year old female Presented with rapid A-fib
CVS: S1-S2 normal, systolic murmur at apex
Chest: CTA B/L
Abdomen: Soft, NT / Bowel sounds present
Extremities: No edema
Echo 04/20/2023-paroxysmal A-fib. EF 50 to 55%. Mild to moderate MR. Aortic sclerosis without stenosis.
# Atrial fibrillation with rapid ventricular rate with history of paroxysmal afib patient was symptomatic
She was on Cardizem as outpatient and had constipation therefore stopped.
Converted to sinus rhythm overnight with conversion pause 7-second. Cardizem stopped
Patient was evaluated by EP for pacemaker and she is for pacemaker placement today.
TSH normal
#Chronic HFpEF-not on diuretics
# Right bundle branch block-chronic
# Mild to moderate MR
# Asthma and history of chronic bronchitis
#Metabolic acidosis-check BMP today
#History of multiple myeloma-on Darzalex monthly with dexamethasone. On acyclovir prophylaxis
# Osteoporosis on Xgeva
# Diverticulosis
#Code status--Full code
#DVT prophylaxis--Eliquis
Discussed with patient's son and sister at bedside
Discussed with nursing
Anticipated Discharge: Within 24 hours
Subjective/Interval History
-
Date of Service: February 08, 2024
Objective Data
-
Vital Signs:
Vital Signs
Temp Pulse Resp BP Pulse Ox
98.1 F 66 18 164/74 95
02/08/24 08:20 02/08/24 03:04 02/08/24 08:20 02/08/24 03:00 02/08/24 08:20
I&O
02/07/24 02/08/24 02/09/24
06:59 06:59 06:59
Intake Total 100 / 100
Balance 100 / 100
--- NOTE | 2024-02-08 13:24 | CM ---
no change in dc plans, home with sister when medically stable.
[2024-02-08 13:31] LABS: Blood Urea Nitrogen 21 mg/dl (7-17); Calcium 9.1 mg/dl (8.4-10.2); Carbon Dioxide 25 mmol/L (22-30); Chloride 107 mmol/L (98-107); Estimated Creatinine Clearance 49 ml/min; Glucose 87 mg/dl (70-99); Potassium 4.5 mmol/L (3.5-5.1); Sodium 141 mmol/L (135-145); eGFR > 60.00
--- NOTE | 2024-02-08 15:44 | ITS.CL.PACE ---
Data Processor - Pacemaker Implant
Pacemaker Implant
Procedure Report:
Dual Chamber Pacemaker Placement:
Ms. Walter is a very pleasant 83 yrs old woman with atrial fibrillation and long conversion pauses (7 seconds) and is advised a dual chamber PPM for sick sinus syndrome.
Patient is left handed and prefers the PPM on the right arm.
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
Date of the Procedure: 02/08/2024
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
Procedure Performed: DUAL CHAMBER PACEMAKER IMPLANTATION
Performing Physician:
Richard Garza MD
Anesthesia:
See anesthesia records
Pre-operative antibiotics:
Ancef 2gm IV
Detailed Description of the Procedure:
The patient was identified using hospital identification and informed consent obtained for the procedure. The risks were explained including, but not limited to: Bleeding, infection, arrhythmia, stroke, vascular/cardiac/lung puncture, surgery,
pacemaker dependency/device malfunction. All questions were answered.
The patient was brought to the electrophysiology laboratory in stable condition in fasting state. Continuous electrocardiographic and hemodynamic monitoring was initiated.
The initial rhythm was sinus.
A surgical pause and time out was performed immediately prior to the procedure with review of her medical history, recent labs, allergies and medications with site of procedure identified and consent noted in the chart. Antibiotics pre operatively
given. All team members concurred.
The procedure site was meticulously prepared with surgical scrub and allowed to dry with no pooling. Sterile draping was applied to cover the procedure site. The image intensifier was draped with sterile bag and positioned over the patient.
Following infiltration with local anesthetic, the right axillary vein was accessed using the fluoroscopic guidance using the micro-puncture apparatus. The vascular sheaths were introduced for lead access. The leads were advanced into the right
ventricle and the right atrium.
The right ventricular lead was secured in position with an active fixation technique at the apical septal location.
The atria lead was placed in the right atrial appendage and secured using passive tines.
There was excellent sensing, pacing, and impedance from the leads, with no diaphragmatic stimulation at 10 V output. Bovie cautery, antibiotics, and fluoroscopy were used.
Pursestring suture was applied at the insertion of the leads.
The sheaths were withdrawn, and the thresholds remained acceptable. The leads were secured in position at the venous entry site with 2-0 Ethibond. A pocket was fashioned contiguous to the incision. The electrode terminals were connected to the pulse
generator, which was placed into the pocket. The wound was irrigated thoroughly with antibiotic solution.
The wound was closed in 3 layers using 2-0 Vloc then two layers of 4-0 V loc sutures to the dermis. Steri-strips were applied externally and covered with Aquacel bandage.
Procedure End:
The procedure was tolerated well.
Estimated Blood loss:
5 cc
Specimens Removed:
No cultures and no specimens were obtained. No intraoperative pathology was identified.
Fluoro time:
2.5min / 2.5 mGy
Urine output:
None
Packs / Drains/ Tubes:
None
Instrument / Sponge Count Correct:
Yes
Complications of the Procedure:
None
Condition of Patient at Time of Transfer:
Hemodynamically stable with no neurological or vascular compromise.
Device information:�
Generator: mediafeedia; Model: W1DR01; Serial # [id number]
Atrial Lead:
Medtronic; Model: 4574-45; Serial # [id number]
Measured data in the right atrium was sensing of 2.1 mV, impedance of 665 ohms and threshold of 0.5 V at 0.4ms.
RV Lead:
Medtronic; Model: 5076-52; Serial # [id number]
Measured data in the RV lead was sensing of 4.5 mV, impedance of 836 ohms and threshold of 0.75 V at 0.4ms�
Alida parameter settings were AAI < = > DDD 60-130 bpm. �
����������� Mode Switch: On
����������� Paced AV interval: 180ms
����������� Sensed AV interval: 150 ms.
����������� Rate Adaptive A-V Interval: Off
Output parameters:
����������������������� Amplitude (V)������������� Pulse Width (ms)������� Sensitivity (mV)
����������� RA: ���� 3.5 ����������������� 0.4������������������ 0.3
����������� RV:����� 3.5������������������ 0.4������������������ 0.9
Summary:
Successful implantation of MRI compatible dual chamber pacemaker
Results/Recommendations:
-Please follow up CXR�
1. Please provide patient with adequate pain control�
Instructions to be given to patient:�
- Please follow up with [facility] at [address] [place] [address] ([phone]) to get your wound checked within 14 days of your discharge.
- Do not wet incision site until after it is evaluated at cardiology clinic. No soaking or bath until then. Showers or Sponge baths are OK.�Dab dry the area after a shower.
- Do not lift right elbow above shoulder, particularly with sudden jerking movements, for 1 month�
- Do not lift anything weighing more than 10 pounds with the right arm for 1 month�
- If you notice any fevers, shortness of breath, lightheadedness, chest pain, or worsening swelling in the wound site, please contact the arrhythmia clinic, contact your flap lining binder, or present to the hospital for evaluation.�
Richard Garza MD
Electrophysiology
--- NOTE | 2024-02-08 16:01 | PTCARENOTE ---
patient returned from PP, RCW, Acuseal, pressure dsg. , immobilizer all intact, patient voices no c/o pain or discomfort. monitor on NSR, BP 162/87. family at bedside.
[2024-02-08] MEDS: TYLENOL 1000 MG PO (16:30)
[2024-02-08] MEDS: ROXICODONE 5 MG PO (17:03)
--- NOTE | 2024-02-08 17:06 | PTCARENOTE ---
patient c/o severe lower left back pain, gave Tylenol po as ordered. did not help patient request 'for something stronger', TT Dr. Dennis, called me and gve an order of Roxicodone po given as ordered.
--- NOTE | 2024-02-08 17:57 | PTCARENOTE ---
post chest xray completed.
--- NOTE | 2024-02-08 19:50 | PTCARENOTE ---
Pt. received at change of shift. Pt. seen and assessed in room. RN assessed new pacemaker site at the right upper chest wall. Site with steri strips, aquacell, pressure dressing, and immobilizer on right arm. RN instructed pt on right limb
restriction, pt. verbalizes understanding of plan. Tele reading NSR, BP 140/76. Call durand within reach, continuing to monitor at this time.
[2024-02-09] VITALS (11 sets, daily range): BP systolic 123–174; BP diastolic 56–102; PULSE 65; O2SAT 96; BMI 23.0
[2024-02-09] MEDS: TYLENOL 650 MG PO ×3 (00:55→23:01)
--- NOTE | 2024-02-09 03:45 | PTCARENOTE ---
VSS, no acute changes in assessment. SR/SB 50s-60s with occasional A. pacing. B/L radial and DP pulses palpable. heart tones clear. R chest wall dressing CDI, sling intact to R arm. B/L breath sounds present. POX 96-97% on room air. bowel sounds
audible. pt voiding without difficulty. PIV intact and patent. AM EKG completed. pt resting between care.
--- NOTE | 2024-02-09 06:02 | W.PN.HOSP.TC ---
Today's Communication/Plan
-
Metoprolol started and Eliquis resumed as per Cardio
PT/OT
Discharge planning home with home services tomorrow
Assessment / Plan
Assessment / Plan
Physical Exam
General: no acute distress, appears comfortable
CVS: S1-S2 regular rate rhythm, systolic murmur
Chest: CTA B/L
Abdomen: Soft, NT / Bowel sounds present
Extremities: No edema
Neuro: AOx3
Psych: Calm
83F HFpEF RBBB Asthma MM Osteoporosis Diverticulosis presented for evaluation/treatment Afib RVR s/p cardioversion complicated with heart pause. Subsequently underwent ppm.
Echo 04/20/2023-paroxysmal A-fib. EF 50 to 55%. Mild to moderate MR. Aortic sclerosis without stenosis.
# Atrial fibrillation with rapid ventricular rate with history of paroxysmal afib
Converted to sinus rhythm overnight with conversion pause 7-second. Cardizem stopped
s/p PPM, started on metoprolol
TSH wnl
Eliquis resumed
#Headache
Tylenol prn
#Chronic HFpEF-not on diuretics
appears euvolemic at this time
started on metoprolol as above
# Right bundle branch block-chronic
# Mild to moderate MR
# Asthma and history of chronic bronchitis
#Metabolic acidosis- resolved
#History of multiple myeloma-on Darzalex monthly with dexamethasone. On acyclovir prophylaxis
# Osteoporosis on Xgeva
# Diverticulosis
#Code status--Full code
#DVT prophylaxis--Eliquis
PT/OT appreciated home services
Discussed with patient's and patient's sister Tamara
I spent a total of 40 minutes with the patient or on the floor. More than 50% of this time involved counseling and coordination of care.
Anticipated Discharge: Within 24 hours
Subjective/Interval History
-
Date of Service: February 09, 2024
Seen and examined at bedside in no acute distress sitting up comfortably in chair. Reporting headache fluctuating throughout the day, poor sleep. Significant SOB noted during physical therapy, resolved at rest.
Objective Data
-
Vital Signs:
Vital Signs
Temp Pulse Resp BP Pulse Ox
97.6 F 74 18 149/79 97
02/09/24 03:27 02/09/24 03:34 02/09/24 03:27 02/09/24 03:34 02/09/24 03:27
I&O
02/07/24 02/08/24 02/09/24
06:59 06:59 06:59
Intake Total 100 / 100 100 / 100
Output Total 1700 / 1700
Balance 100 / 100 -1600 / -1600
[2024-02-09] MEDS: VITAMIN D3 (cholecalciferol) 25 MCG PO (07:56)
[2024-02-09] MEDS: THERAGRAN 1 TABLET PO (07:56)
[2024-02-09] MEDS: PROTONIX 40 MG PO (07:56)
[2024-02-09] MEDS: MAGNESIUM OXIDE 500 MG PO (07:56)
[2024-02-09] MEDS: ZOVIRAX 400 MG PO ×2 (07:56→20:19)
--- NOTE | 2024-02-09 09:04 | W.PN.CD ---
Addendum entered and electronically signed by Darius Hooker MD 02/09/24 09:40:
reviewed with EP .
Eliquis to be restarted tonight
Start Toprol XL 50mg daily
Original Note:
Today's Communication / Plan
-
- Pacer site is fine. will need incision check in our office in one week and bandage will be removed at that time. Bandage to remain on for a week.
- will resume anticoagulation when Ok with EP
Impression / Plan
-
83 yo female with PMH of paroxysmal A fib on eliquis, RBBB, chronic HFPEF, multiple myeloma presented to ED with palps. She is typically in NSR, and then felt palps and SOB, and some chest tightness; so presented to ED. She was found to be in A
fib with RVR.
# Afib with RVR, severe, symptomatic
-Converted to sinus with significant conversion pause of 7 seconds.
-PPM ( dual chamber ) implant 02/08/24
-CHADS2-VASC = 4. She was on eliquis 2.5mg bid, but now changed to 5mg bid, as weight is above 60kg (she lost weight after of her son, then gained back)
- will resume Eliquis when OK with EP
# -PPM ( dual chamber ) implant 02/08/24
- site fine
- will need incision check in our officein one week and bandage will be removed at that time
# Chronic HFPEF: stable, lasix prn
# RBBB: chronic, stable
# Mild/moderate MR
Studies
Echo 04/20/23: EF 50-55%, mild/mod MR, aortic sclerosis
Physical Exam
Vital Signs/Labs
Vital Signs
Temp Pulse Resp BP Pulse Ox
98.2 F 73 18 171/73 97
02/09/24 07:57 02/09/24 07:57 02/09/24 07:57 02/09/24 07:57 02/09/24 07:57
02/08/24 02/09/24 02/10/24
06:59 06:59 06:59
Actual Weight 60.9 kg 58.8 kg
02/07/24 04:00
02/08/24 12:48
Magnesium 2.0 mg/dl (1.6-2.3) 02/07/24 04:00
LAB Results
02/06/24 02/06/24 02/07/24
20:32 22:48 00:55
Troponin I 0.013 Cancelled < 0.012
02/07/24
08:40
Troponin I < 0.012
Physical Exam
Constitutional: No acute distress
Cardiovascular: Rhythm & rate is regular
Respiratory: Respiratory effort normal
GI: Soft
Neuro/Psych: Alert
Data Reviewed
-
Date of Service: February 09, 2024
Medical Decision Making: Reviewed Test Results
EKG: Report Reviewed by me
Medical Tests (PFT, Pathology etc): Report Reviewed by me
Labs: Labs Reviewed by me
[2024-02-09] MEDS: TOPROL XL 50 MG PO (10:04)
[2024-02-09] MEDS: ELIQUIS 5 MG PO (20:20)
--- NOTE | 2024-02-09 21:00 | PTCARENOTE ---
R chest wall CDI. Some mild ecchy around the dressing. A paced on the monitor. Pillow placed behind the R shoulder for comfort.
--- NOTE | 2024-02-10 04:04 | DOWNTIME ---
There was a [employer] Downtime on 02/10/2024 from 0100 to 02/10/2024 at 0350. Downtime documentation of patient's care, including medication administrations, has been reconciled in the electronic record per guidelines. Refer to the
patient's paper chart under the miscellaneous tab to see printed paper medication records and downtime forms.
[2024-02-10 04:24] VITALS: BP 151/74
[2024-02-10 05:16] LABS: Blood Urea Nitrogen 28 mg/dl (7-17); Carbon Dioxide 25 mmol/L (22-30); Chloride 104 mmol/L (98-107); Estimated Creatinine Clearance 38 ml/min; Glucose 88 mg/dl (70-99); Magnesium 2.3 mg/dl (1.6-2.3); Phosphorus 3.5 mg/dl (2.5-4.5); Potassium 4.7 mmol/L (3.5-5.1); Sodium 137 mmol/L (135-145); eGFR > 60.00
[2024-02-10 05:43] LABS: Hematocrit 36.3 % (37.0-47.0); Hemoglobin 12.4 g/dL (12.0-16.0); Mean Corp Hgb Conc. 34.2 g/dL (33.0-37.0); Mean Corpuscular Hgb 30.8 pg (27.0-31.0); Mean Corpuscular Volume 90.3 fL (81.0-99.0); Mean Platelet Volume 9.2 fL (7.4-10.4); Platelet Count 208 10^3/uL (130-400); Red Blood Cell Count 4.02 10^6/uL (4.20-5.40); White Blood Cell Count 7.6 10^3/uL (4.8-10.8)
--- NOTE | 2024-02-10 07:11 | W.PN.HOSP.TC ---
Today's Communication/Plan
-
Pain control
Bactrim
planned for discharge tomorrow morning
Assessment / Plan
Assessment / Plan
Physical Exam
General: no acute distress, appears comfortable
CVS: S1-S2 regular rate rhythm, systolic murmur
Chest: CTA B/L
Abdomen: Soft, NT / Bowel sounds present
Extremities: No edema
Neuro: AOx3
Psych: Calm
83F HFpEF RBBB Asthma MM Osteoporosis Diverticulosis presented for evaluation/treatment Afib RVR s/p cardioversion complicated with heart pause. Subsequently underwent ppm.
Echo 04/20/2023-paroxysmal A-fib. EF 50 to 55%. Mild to moderate MR. Aortic sclerosis without stenosis.
# Atrial fibrillation with rapid ventricular rate with history of paroxysmal afib
Converted to sinus rhythm overnight with conversion pause 7-second. Cardizem stopped
s/p PPM, started on metoprolol tolerated
TSH wnl
Eliquis resumed
Cardio consult appreciated
#Headache
Tylenol prn
#Chronic HFpEF-not on diuretics
appears euvolemic at this time
started on metoprolol as above
# Right bundle branch block-chronic
# Mild to moderate MR
# Asthma and history of chronic bronchitis
#Metabolic acidosis- resolved
#History of multiple myeloma-on Darzalex monthly with dexamethasone. On acyclovir prophylaxis
# Osteoporosis on Xgeva
# Diverticulosis
#Lower Back pain, suspect muscle strain/spasm
responded well to lidocaine patch, cont
#Hx Bladder Colon Fistula
#UTI
reports fecal matter in urine along with dysuria
previously prescribed Bactrim prior to hospitalization, had not started
Bactrim started 02/09
has outpt follow up with urology planned, continue
#Code status--Full code
#DVT prophylaxis--Eliquis
PT/OT appreciated home services
Discussed with patient's and patient's sister Tamara
I spent a total of 40 minutes with the patient or on the floor. More than 50% of this time involved counseling and coordination of care.
Anticipated Discharge: Within 24 hours
Subjective/Interval History
-
Date of Service: February 10, 2024
Reports lower back pain and burning with urination, previously prescribed Bactrim before hospitalization but had not started yet. No significant systemic signs of infection, afebrile. Back pain well controlled with lidocaine patch.
Objective Data
-
Labs:
Laboratory Results
02/10/24
04:37
WBC 7.6
Hgb 12.4
Hct 36.3 L
Plt Count 208 D
Sodium 137
Potassium 4.7
Chloride 104
Carbon Dioxide 25
BUN 28 H
Creatinine 0.9
Glucose 88
Calcium 9.0
Vital Signs:
Vital Signs
Temp Pulse Resp BP Pulse Ox
97.9 F 62 18 151/74 95
02/10/24 04:43 02/10/24 04:24 02/10/24 04:43 02/10/24 04:24 02/10/24 04:43
I&O
02/09/24 02/10/24 02/11/24
06:59 06:59 06:59
Intake Total 100 / 100
Output Total 1700 / 1700
Balance -1600 / -1600
[2024-02-10 07:50] VITALS: BP 141/71
[2024-02-10] MEDS: VITAMIN D3 (cholecalciferol) 25 MCG PO (08:33)
[2024-02-10] MEDS: MAGNESIUM OXIDE 500 MG PO (08:33)
[2024-02-10] MEDS: ELIQUIS 5 MG PO ×2 (08:33→19:55)
[2024-02-10] MEDS: TOPROL XL 50 MG PO (08:33)
[2024-02-10] MEDS: PROTONIX 40 MG PO (08:33)
[2024-02-10] MEDS: ZOVIRAX 400 MG PO ×2 (08:33→19:55)
[2024-02-10] MEDS: THERAGRAN 1 TABLET PO (08:34)
[2024-02-10] MEDS: TYLENOL 650 MG PO (08:37)
--- NOTE | 2024-02-10 09:26 | W.PN.CD ---
Today's Communication / Plan
-
Patient remained stable from cardiology standpoint. Pacemaker site appears fine. No evidence of A-fib overnight. Tolerating current medical therapy including Toprol and Eliquis.
Cardiology issues are stable.
Plan for outpatient follow-up including incision check in approximately 1 week from implant date
Patient reports some left mid back discomfort today. Management as directed by primary team patient currently being assessed
Call if additional assistance required
Impression / Plan
-
83 yo female with PMH of paroxysmal A fib on eliquis, RBBB, chronic HFPEF, multiple myeloma presented to ED with palps. She is typically in NSR, and then felt palps and SOB, and some chest tightness; so presented to ED. She was found to be in A
fib with RVR.
# Afib with RVR, severe, symptomatic
-Converted to sinus with significant conversion pause of 7 seconds.
-PPM ( dual chamber ) implant 02/08/24
-CHADS2-VASC = 4. She was on eliquis 2.5mg bid, but now changed to 5mg bid, as weight is above 60kg (she lost weight after of her son, then gained back)
- will resume Eliquis when OK with EP
-Continue Cardizem
# -PPM ( dual chamber ) implant 02/08/24
- site fine
- will need incision check in our officein one week and bandage will be removed at that time
# Chronic HFPEF: stable, lasix prn
# RBBB: chronic, stable
# Mild/moderate MR
.
# Left mid back pain some pain with palpation. Patient thinks it is the way she was laying on the table for her pacemaker. Symptoms being evaluated by hospitalist
Studies
Echo 04/20/23: EF 50-55%, mild/mod MR, aortic sclerosis
Physical Exam
Vital Signs/Labs
Vital Signs
Temp Pulse Resp BP Pulse Ox
98 F 62 20 151/74 98
02/10/24 07:46 02/10/24 04:24 02/10/24 07:46 02/10/24 04:24 02/10/24 07:46
02/09/24 02/10/24 02/11/24
06:59 06:59 06:59
Actual Weight 58.8 kg
02/10/24 04:37
02/10/24 04:37
Magnesium 2.3 mg/dl (1.6-2.3) 02/10/24 04:37
Physical Exam
Constitutional: No acute distress
Cardiovascular: Rhythm & rate is regular
Respiratory: Respiratory effort normal
GI: Soft
Neuro/Psych: Alert
Data Reviewed
-
Date of Service: February 10, 2024
Medical Decision Making: Reviewed Test Results
X-Ray/CT/US/MRI/NUC/PET: Report Reviewed by me
Medical Tests (PFT, Pathology etc): Report Reviewed by me
Labs: Labs Reviewed by me
[2024-02-10] MEDS: LIDOCAINE 4% PATCH 1 PATCH TOPICAL (09:30)
[2024-02-10 12:00] VITALS: BP 146/66
--- NOTE | 2024-02-10 14:54 | CM ---
Addendum entered by MANDO Berman 02/12/24 08:43:
[facility] able to accept.
Original Note:
CM following for DC planning needs.
Met w/ patient and sister, Pat at bedside.
We reviewed DC plans for home w/ sister (sister lives locally in [place] and patient has been staying w/ her).
PT recommending home health. Offered [facility] to patient and she agrees. Would prefer [facility], has used them in past. Will initiate referral to [facility].
Plan: Anticipate home w/ [facility]
[2024-02-10 15:32] VITALS: BP 98/69
[2024-02-10 18:49] VITALS: BP 107/56
[2024-02-10] MEDS: BACTRIM DS 800 MG/160 MG 1 TABLET PO (19:55)
[2024-02-10 22:55] VITALS: BP 121/95
--- NOTE | 2024-02-11 00:10 | PTCARENOTE ---
Pt received start of shift, HR mostly a-paced with underlying sinus rhythm. Pt's R upper chest pacer site dressing CDI. Reinforced activity restrictions w/ pt in regards to s/p PPM placement. Pt ambulating in room w/ standby assist. Pt denies any
pain, SOB, or lightheadedness/dizziness. Informed to notify RN if any changes, call durand within reach.
[2024-02-11 02:28] VITALS: BP 143/66
[2024-02-11] MEDS: TYLENOL 650 MG PO ×2 (02:30→08:23)
[2024-02-11 02:36] VITALS: BMI 22.8
--- NOTE | 2024-02-11 07:30 | W.PN.HOSP.TC ---
Today's Communication/Plan
-
discharge
Assessment / Plan
Assessment / Plan
Physical Exam
General: no acute distress, appears comfortable
CVS: S1-S2 regular rate rhythm, systolic murmur
Chest: CTA B/L
Abdomen: Soft, NT / Bowel sounds present
Extremities: No edema
Neuro: AOx3
Psych: Calm
83F HFpEF RBBB Asthma MM Osteoporosis Diverticulosis presented for evaluation/treatment Afib RVR s/p cardioversion complicated with heart pause. Subsequently underwent ppm.
Echo 04/20/2023-paroxysmal A-fib. EF 50 to 55%. Mild to moderate MR. Aortic sclerosis without stenosis.
# Atrial fibrillation with rapid ventricular rate with history of paroxysmal afib
Converted to sinus rhythm overnight with conversion pause 7-second. Cardizem stopped
s/p PPM, started on metoprolol tolerated
TSH wnl
Eliquis resumed
Cardio consult appreciated
#Headache
Tylenol prn
#Chronic HFpEF-not on diuretics
appears euvolemic at this time
started on metoprolol as above
# Right bundle branch block-chronic
# Mild to moderate MR
# Asthma and history of chronic bronchitis
#Metabolic acidosis- resolved
#History of multiple myeloma-on Darzalex monthly with dexamethasone. On acyclovir prophylaxis
# Osteoporosis on Xgeva
# Diverticulosis
#Lower Back pain, suspect muscle strain/spasm
responded well to lidocaine patch, cont
#Hx Bladder Colon Fistula
#UTI
reports fecal matter in urine along with dysuria
previously prescribed Bactrim prior to hospitalization, had not started
Bactrim started 02/09
outpt follow up with urology recommended
#Code status--Full code
#DVT prophylaxis--Eliquis
PT/OT appreciated home services
Medically stable for discharge home with home services and outpatient follow up recommendations
Discussed with patient and patient's sister Tamara
Total Time Preparing Discharge ___40____ minutes including examination of the patient, summary of the hospital stay, instructions for continuing care to all relevant caregivers; and preparation of discharge records, prescriptions, and referral
forms if necessary.
Anticipated Discharge: Today
Subjective/Interval History
-
Date of Service: February 11, 2024
Seen and examined at bedside in no acute distress. Patient reports overall feeling well. Denies new acute issues at this time. Eager to go home.
Objective Data
-
Vital Signs:
Vital Signs
Temp Pulse Resp BP Pulse Ox
97.8 F 60 20 143/66 95
02/11/24 02:28 02/11/24 06:00 02/11/24 02:28 02/11/24 02:28 02/11/24 02:28
[2024-02-11 08:04] VITALS: BP 142/61
[2024-02-11] MEDS: BACTRIM DS 800 MG/160 MG 1 TABLET PO (08:22)
[2024-02-11] MEDS: PROTONIX 40 MG PO (08:22)
[2024-02-11] MEDS: ELIQUIS 5 MG PO (08:22)
[2024-02-11] MEDS: MAGNESIUM OXIDE 500 MG PO (08:22)
[2024-02-11] MEDS: ZOVIRAX 400 MG PO (08:23)
[2024-02-11] MEDS: VITAMIN D3 (cholecalciferol) 25 MCG PO (08:23)
[2024-02-11] MEDS: TOPROL XL 50 MG PO (08:23)
[2024-02-11] MEDS: THERAGRAN 1 TABLET PO (08:23)
[2024-02-11] MEDS: LIDOCAINE 4% PATCH 1 PATCH TOPICAL (08:26)
--- NOTE | 2024-02-11 10:16 | W.DCSUMMARY ---
Discharge Summary
Discharge Data
Date of Admission: 02/06/24
Date of Discharge: 02/11/24
-
Pending Results: No
Discharge Plan
-
Patient Disposition: Home with Home Care
Discharge Diagnosis/Procedures: Atrial Fibrillation with Rapid Ventricular Rate successfully cardioverted complicated with Heart Pause status post pacemaker placement
Lower Back Pain likely musculoskeletal
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
Chronic Heart Failure with preserved ejection fraction
Condition: Fair
Diet: Low Cholesterol and 2 Gram Sodium
Activity: As tolerated
Additional Activity: see device instructions
Driving Restrictions: Not until seen by your Dr
Bathing Restrictions: None
Blood Work: Repeat CBC and BMP with primary care provider in 1 week of discharge.
Activity Restrictions/Additional Instructions:
Please follow up with primary care provider in 1 week of discharge, keep your appointment with Cardiology, and follow up with Urology in 2 weeks of discharge.
Metoprolol has been prescribed for atrial fibrillation and heart failure.
Lidocaine patch has been prescribed for lower back pain.
Regarding your home Eliquis medication, for stroke risk reduction atrial fibrillation, check your weight daily and increased Eliquis to 5 mg twice a day if your weight is greater than 60 kg (132.277 lbs). Continue Eliquis at 2.5 mg twice a day if
your weight is 60 kg (132.277 lbs) or less.
Resume Bactrim antibiotic as previously prescribed by your outpatient provider.
Please take medications as prescribed/recommended and follow up with primary care provider and/or other healthcare provider involved in your care for refills and/or further adjustment to your medication regimen as necessary.
Stand Alone Forms: DC Inst - Implanted Device
Referrals:
[facility] [Outside] - in one to two days
Rhina Marte CRNP [Specified Professional Personl] - 02/17/24 8:40 am
Thierry Wilson CRNP [Family Provider] - in one week
Camilo Padron MD [Active] - in two weeks
Prescriptions:
New
lidocaine 4 % Adhesive Patch,Medicated
1 patch topical DAILY Qty: 6 0RF
metoprolol succinate 50 mg Tablet Extended Release 24 Hr
50 mg PO DAILY 30 Days Qty: 30 0RF
Continued
dexamethasone 4 MG tablet
4 mg PO DIRECTED
Rx Instructions:
Take 5 tabs (20mg) on the morning of, then take 1 tabs (4mg) for 2 days after
omeprazole 20 MG capsule,delayed release(DR/EC)
20 mg PO DAILYPRN PRN (Reason: Gastrointestinal issue)
montelukast [Singulair] 10 mg Tablet
10 mg PO DIRECTED
Rx Instructions:
take the night before, the night of and the night after Darzalex
acyclovir 400 mg tablet
400 mg PO BID
Darzalex
1 dose SC MONTHLY
Xgeva
1 dose SC [id number]
biotin 10 mg Tablet
10 mg PO DAILY
therapeutic multivitamin Tablet
1 tab PO DAILY
ibuprofen [Advil] 200 mg Tablet
400 mg PO Q8HPRN PRN (Reason: mild pain)
magnesium oxide 500 mg magnesium Tablet
500 mg PO DAILY
cholecalciferol (vitamin D3) [Vitamin D3] 25 mcg (1,000 unit) Tablet
25 mcg PO DAILY
Changed
Eliquis 5 MG tablet
2.5 mg PO BID Qty: 0 0RF
Rx Instructions:
Increase to 5 mg twice a day if weight>60kg (132.277 lbs)
Discharge Orders:
Discharge Patient (As Directed); Ordered 02/11/24
Ordered By: Umer Ayala
Care Plan Goals
Care Plan Goals:
Problem: Readiness for enhanced knowledge related to diagnosis and treatment plan
Goal: Understand your diagnosis and treatment plan needs, including medications if applicable.
Instructions: Know your diagnosis, underlying causes and treatment plan options, including medications if applicable. Consult with your health care team to learn about your diagnosis and treatment plan, including medications if applicable.
Discharge Date and Time
Print Language: KYRGYZ
[2024-02-11 10:47] VITALS: BP 138/77
--- NOTE | 2024-02-11 12:06 | PTCARENOTE ---
Pt seen by . Telemetry and IV device removed. Discharge instructions reviewed with pt and her sister regarding activity and driving guidelines, wound care, pain management, medications and their possible side effects, CHF guidelines, specific
eliquis instructions, reporting cares and concerns and follow up appts and blood work. Very good understanding taught back to RN. Pt escorted out via wheelchair and discharged to home.
== END 2024-02-11 12:13 | disposition home health service (06) | DRG 243 ==
LOC: IVU 16:13
PROVIDERS: Hospitalist; Internal Medicine Cardiovascular Disease; Registered Nurse; ADMITTING PHYSICIAN Internal Medicine; ATTENDING PHYSICIAN Internal Medicine; CONSULT PHYSICIAN Internal Medicine; EMERGENCY PHYSICIAN Emergency Medicine; FAMILY PHYSICIAN Nurse Practitioner Adult Health
PROC: 02H63JZ Insertion of Pacemaker Lead into Right Atrium, Percutaneous Approach (ICD-10-PCS; 2024-02-08)
PROC: 02HK3JZ Insertion of Pacemaker Lead into Right Ventricle, Percutaneous Approach (ICD-10-PCS; 2024-02-08)
PROC: 0JH606Z Insertion of Pacemaker, Dual Chamber into Chest Subcutaneous Tissue and Fascia, Open Approach (ICD-10-PCS; 2024-02-08)
DX: I48.0 Paroxysmal atrial fibrillation (principal); E87.20 Acidosis, unspecified; I50.32 Chronic diastolic (congestive) heart failure; N39.0 Urinary tract infection, site not specified; I49.5 Sick sinus syndrome; Z79.01 Long term (current) use of anticoagulants; R00.2 Palpitations; M81.0 Age-related osteoporosis without current pathological fracture; M54.50 Low back pain, unspecified
CPT/HCPCS: 33208; 71045; 80048; 80053; 83036; 83735; 84100; 84443; 84484; 85025; 85027; 93005; 93306; 96365; 96366; 97163; 97166; 99291; C1785; C1892; C1898

== ENCOUNTER → 2024-03-03 14:14 | Outpatient (REF) | payer MEDICARE, OTHER, SELFPAY ==
[2024-03-03 15:44] LABS: Urine Albumin Trace (Neg - Trace); Urine Bilirubin Negative (Negative); Urine Character Very Cloudy (Clear); Urine Color Yellow; Urine Glucose Negative (Negative); Urine Ketone Negative (Negative); Urine Leukocyte 2+ (Negative); Urine Nitrite Positive (Negative); Urine Occult Blood Trace (Negative); Urine Urobilinogen Negative (Neg - 1+)
[2024-03-03 15:52] LABS: Urine Squamous Cell 26-30 /LPF (Few)
[2024-03-03 15:53] LABS: Urine Amorphous Seen; Urine Bacteria Many (Negative); Urine Red Blood Cell 0-2 /HPF (0-2)
== END ==
LOC: REG 14:14
PROVIDERS: ATTENDING PHYSICIAN Nurse Practitioner Adult Health; FAMILY PHYSICIAN Internal Medicine
DX: Z87.440 Personal history of urinary (tract) infections (principal); Z79.899 Other long term (current) drug therapy; Z95.0 Presence of cardiac pacemaker; R00.1 Bradycardia, unspecified
CPT/HCPCS: 81003; 81015; 87086

== ENCOUNTER → 2024-04-28 14:38 | Outpatient (REF) | payer OTHER, MEDICARE, SELFPAY | LOC: HWRAD 14:38 | PROVIDERS: ATTENDING PHYSICIAN Specialist; FAMILY PHYSICIAN Nurse Practitioner Adult Health; REFERRING PHYSICIAN Surgery | DX: N32.1 Vesicointestinal fistula (principal) | CPT/HCPCS: 74176 ==

== ENCOUNTER → 2024-06-15 10:13 | Outpatient (REF) | payer OTHER, MEDICARE, SELFPAY ==
[2024-06-15 11:00] LABS: % Basophils 0.8 % (0-2); % Eosinophils 3.3 % (0-6); % Immature Granulocytes 0.3 % (0-0.5); % Lymphocytes 22.5 % (20.5-51.1); % Monocytes 11.9 % (1.7-9.3); % Neutrophils 61.2 % (42.2-75.2); Absolute Basophils 0.1 10^3/uL (0-0.2); Absolute Eosinophils 0.2 10^3/uL (0-0.7); Absolute Lymphocytes 1.4 10^3/uL (1.2-3.4); Absolute Monocytes 0.7 10^3/uL (0.1-0.6); Absolute Neutrophils 3.7 10^3/uL (1.4-6.5); Hematocrit 36.1 % (37.0-47.0); Hemoglobin 11.8 g/dL (12.0-16.0); Mean Corp Hgb Conc. 32.7 g/dL (33.0-37.0); Mean Corpuscular Hgb 30.7 pg (27.0-31.0); Mean Platelet Volume 9.5 fL (7.4-10.4); Nucleated Red Blood Cells % 0 %; Platelet Count 300 10^3/uL (130-400); Red Blood Cell Count 3.84 10^6/uL (4.20-5.40); Red Cell Dist. Width 13.9 % (11.5-14.5); White Blood Cell Count 6.1 10^3/uL (4.8-10.8)
[2024-06-15 11:52] LABS: ALT (SGPT) 16 U/L (0-35); AST (SGOT) 24 U/L (14-36); Albumin 4.3 g/dl (3.5-5.0); Alkaline Phosphatase 68 U/L (38-126); Blood Urea Nitrogen 41 mg/dl (7-17); Calcium 9.9 mg/dl (8.4-10.2); Carbon Dioxide 26 mmol/L (22-30); Chloride 106 mmol/L (98-107); Glucose 104 mg/dl (70-99); Potassium 4.3 mmol/L (3.5-5.1); Sodium 142 mmol/L (135-145); Total Bilirubin 0.5 mg/dl (0.2-1.3); eGFR 54.87
[2024-06-16 17:17] LABS: Beta-2-Microglobulin 2.9 mg/L (<=3.0)
[2024-06-18 01:02] LABS: Alpha 1 Globulin 0.29 g/dL (0.19-0.46); Alpha 2 Globulin 0.79 g/dL (0.48-1.05); Free Lambda Light Chains,Quant 6.48 mg/L (5.71-26.30); IgA 32 mg/dL (68-408); IgG 324 mg/dL (768-1632); IgM 54 mg/dL (35-263); Immunofixation Electrophoresis IFE Done; Kappa/Lambda Fr Light Ratio 1.22 (0.26-1.65)
== END ==
LOC: REG 10:13
PROVIDERS: ATTENDING PHYSICIAN Internal Medicine Hematology & Oncology; FAMILY PHYSICIAN Nurse Practitioner Adult Health
DX: C90.00 Multiple myeloma not having achieved remission (principal); R30.0 Dysuria; N39.0 Urinary tract infection, site not specified
CPT/HCPCS: 36415; 80053; 82232; 82784; 83521; 84155; 84165; 85025; 86334